=== PATIENT | male | born 1945 | race Caucasian/White ===

== ENCOUNTER 2018-02-10 08:55 | Emergency (ER) | payer MEDICARE, BC, SELFPAY ==
[2018-02-10 09:00] VITALS: BP 180/73; PULSE 76; RESP 18; TEMP 36.7; O2SAT 16
--- NOTE | 2018-02-10 09:25 | DI.REPORT_ITS ---
SYMPTOM/DIAGNOSIS: PAIN FOR 1 WEEK AFTER CATCHING IT WRONG, TOO PAINFUL TO MOVE MUCH LEFT SHOULDER: No fracture or dislocation is seen. There is spurring at the A-C joint and glenoid. No tendon or joint space calcifications are seen. 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 No acute abnormality is seen. There has been no significant change when compared with 2009.
[2018-02-10] MEDS: Ketorolac 30 MG/ML VIAL 15 MG IM (09:30)
--- NOTE | 2018-02-10 10:11 | ED.GENADUL ---
Disposition Clinical Impression: Left shoulder pain Disposition: HOME Condition: Good Instructions: Shoulder Pain (ED), Adhesive Capsulitis (ED) Additional Instructions: Please use the sling as directed. Please move your arm regularly multiple times throughout the day to prevent any adhesive capsulitis. Please follow-up with the orthopedic surgeon as soon as possible for reassessment. Please take [id number] Motrin for your pain, and ice or warm your joint regularly. If you notice any worsening of your symptoms, or any new symptoms such as vomiting, diarrhea, fever, chills, shortness of breath, chest pain, numbness, weakness, or fainting , please return immediately to the emergency department for reevaluation. Please follow up with your primary care provider as soon as possible for reassessment and reevaluation. As always, it was a pleasure participating in your medical care today. Referrals: Reggie Beasley MD [ [facility] ST[facility]FF PHYSICIAN] - Medical Decision Making - Medical Decision Making This is a pleasant 73-year-old male who presents for left shoulder pain after using his arm to catch himself when his knee gave out. He currently has no knee pain or symptoms in his lower extremities whatsoever. He does have mild to moderate pain in his left shoulder. Limitation with internal and external rotation as well as flexion extension secondary to pain. No crepitus, no signs of dislocation. X-ray does reveal evidence of calcifications, and joint arthritis. With normal strength is slightly limited movement I am concerned for a ligamentous or rotator cuff injury without fracture. Patient will be given a sling, with close orthopedic follow-up with whom he has seen in the past. I had a long discussion with him regarding the importance of continued movement of the shoulder to avoid frozen shoulder syndrome. We discussed red flags first return the patient understands. I have extensively reviewed the treatment plan and discharge instructions with the patient. I have addressed all patient concerns at this time. The patient was made aware of what symptoms to monitor for that would warrant a return to the emergency department. Discussed the plan with the patient, they demonstrate verbal understanding and agreement with our assessment and plan at this time. 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 Patient states that occasionally his left knee will go out due to an old injury in this occurred yesterday, when his knee went out he caught all of his weight using his left hand. This caused some mild immediate pain in his left shoulder. Since then he has had pain with movement of the shoulder. There is no radiation of the pain to his chest, neck, there is no exertional component of his pain. It is all musculoskeletal with movement of the shoulder. He denied hearing any popping or crepitus. Patient denies any previous injuries or trauma with this shoulder. Patient is not on any blood thinners. He has no other complaints at this time. - Related Data Multivitamin [Multivitamins] 1 unit PO DAILY 10/13/12 Omeprazole [Prilosec] 20 mg PO DAILY 10/13/12 Tacrolimus Anhydrous [Prograf] 3 tab PO BID 10/13/12 Vitamin D 1,000 units PO DAILY 10/13/12 Amlodipine Besylate 5 mg PO DAILY 06/21/15 Aspirin [Aspir 81] 81 mg PO DAILY 06/21/15 Cholecalciferol (Vitamin D3) [Vitamin D3] 2,000 units PO BID 06/21/15 Docusate Sodium [Stool Softener] 100 mg PO BID 06/21/15 Lisinopril 10 mg PO DAILY 06/21/15 Psyllium Seed (with Sugar) [Metamucil Fiber Wafer] 2 units PO DAILY 06/21/15 OxyCODONE [Roxicodone] 20 mg PO DAILY PRN 08/21/17 Allergies Allergy/AdvReac Type Severity Reaction Status Date / Time metronidazole [From Flagyl] AdvReac Unverified 08/21/17 10:54 Review of Systems Other: 10 point review of systems was performed, pertinent positives and negatives are noted in the history of present illness. Past Medical History - Past Medical History Medical history: AFIB (paroxysmal, has had on 2 occasions, last in 2011) Nephrolithiasis Surgical history: appendectomy, other (Liver transplant August 2011) Family history: no significant family history - Social History Alcohol use: none Drug use: none General Exam - Other Other exam information: 1.Const: Well-nourished, Well-developed, appearing stated age 2.Eyes: PERRL, no conjunctival injection, and symmetrical lids. 3.ENT: Atraumatic external nose and ears. Moist MM. Neck: Symmetric, trachea midline, No thyromegaly. 4.CVS: +S1/S2, No murmurs or gallops. Peripheral pulses 2+ and equal in all extremities. Brisk capillary refill in all extremities. 5.RESP: Unlabored respiratory effort. Clear to auscultation bilaterally. No wheezes rales or rhonchi 6.GI: Soft, Nontender/Nondistended, No hepatosplenomegaly. No guarding or rebound. 7.MSK: Normocephalic/Atraumatic, Extremities w/o deformity. Mild tenderness to palpation on the anterior shoulder. No deformity or evidence of dislocation. Pain with all degrees of movement, albeit mild to moderate. No severe pain. Patient is able to flex extend internally and externally rotate his left shoulder however internal and external rotation is limited to roughly 20? in each direction, flexion and extension is limited to roughly 50?. Sensation is intact distally to the left shoulder. Radial pulses, capillary refill are equal and normal bilaterally. Good flexion and extension at the elbow, and wrist with no pain or deformity. 8.Skin: Warm, Dry. No rashes or lesions. 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 Sensation grossly intact, no focal neurologic deficits. 10.Psych: (AAO) x3. Appropriate mood and affect Course Vital Signs - 24 hr 02/10/18 09:00 Temperature 36.7 C Pulse 76 Respiratory 18 Rate Blood Pressure 180/73 Pulse Oximetry 16 L
--- NOTE | 2018-02-10 10:17 | ED.GENADUL_ITS ---
Disposition Clinical Impression: Left shoulder pain Disposition: HOME Condition: Good Instructions: Shoulder Pain (ED), Adhesive Capsulitis (ED) Additional Instructions: Please use the sling as directed. Please move your arm regularly multiple times throughout the day to prevent any adhesive capsulitis. Please follow-up with the orthopedic surgeon as soon as possible for reassessment. Please take [id number] Motrin for your pain, and ice or warm your joint regularly. If you notice any worsening of your symptoms, or any new symptoms such as vomiting, diarrhea, fever, chills, shortness of breath, chest pain, numbness, weakness, or fainting , please return immediately to the emergency department for reevaluation. Please follow up with your primary care provider as soon as possible for reassessment and reevaluation. As always, it was a pleasure participating in your medical care today. Referrals: Reggie Beasley MD [ [facility] STAFF PHYSICIAN] - Medical Decision Making - Medical Decision Making This is a pleasant 73-year-old male who presents for left shoulder pain after using his arm to catch himself when his knee gave out. He currently has no knee pain or symptoms in his lower extremities whatsoever. He does have mild to moderate pain in his left shoulder. Limitation with internal and external rotation as well as flexion extension secondary to pain. No crepitus, no signs of dislocation. X-ray does reveal evidence of calcifications, and joint arthritis. With normal strength is slightly limited movement I am concerned for a ligamentous or rotator cuff injury without fracture. Patient will be given a sling, with close orthopedic follow-up with whom he has seen in the past. I had a long discussion with him regarding the importance of continued movement of the shoulder to avoid frozen shoulder syndrome. We discussed red flags first return the patient understands. I have extensively reviewed the treatment plan and discharge instructions with the patient. I have addressed all patient concerns at this time. The patient was made aware of what symptoms to monitor for that would warrant a return to the emergency department. Discussed the plan with the patient, they demonstrate verbal understanding and agreement with our assessment and plan at this time. 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 Patient states that occasionally his left knee will go out due to an old injury in this occurred yesterday, when his knee went out he caught all of his weight using his left hand. This caused some mild immediate pain in his left shoulder. Since then he has had pain with movement of the shoulder. There is no radiation of the pain to his chest, neck, there is no exertional component of his pain. It is all musculoskeletal with movement of the shoulder. He denied hearing any popping or crepitus. Patient denies any previous injuries or trauma with this shoulder. Patient is not on any blood thinners. He has no other complaints at this time. - Related Data Multivitamin [Multivitamins] 1 unit PO DAILY 10/13/12 Omeprazole [Prilosec] 20 mg PO DAILY 10/13/12 Tacrolimus Anhydrous [Prograf] 3 tab PO BID 10/13/12 Vitamin D 1,000 units PO DAILY 10/13/12 Amlodipine Besylate 5 mg PO DAILY 06/21/15 Aspirin [Aspir 81] 81 mg PO DAILY 06/21/15 Cholecalciferol (Vitamin D3) [Vitamin D3] 2,000 units PO BID 06/21/15 Docusate Sodium [Stool Softener] 100 mg PO BID 06/21/15 Lisinopril 10 mg PO DAILY 06/21/15 Psyllium Seed (with Sugar) [Metamucil Fiber Wafer] 2 units PO DAILY 06/21/15 OxyCODONE [Roxicodone] 20 mg PO DAILY PRN 08/21/17 Allergies Allergy/AdvReac Type Severity Reaction Status Date / Time metronidazole [From Flagyl] AdvReac Unverified 08/21/17 10:54 Review of Systems Other: 10 point review of systems was performed, pertinent positives and negatives are noted in the history of present illness. Past Medical History - Past Medical History Medical history: AFIB (paroxysmal, has had on 2 occasions, last in 2011) Nephrolithiasis Surgical history: appendectomy, other (Liver transplant August 2011) Family history: no significant family history - Social History Alcohol use: none Drug use: none General Exam - Other Other exam information: 1.Const: Well-nourished, Well-developed, appearing stated age 2.Eyes: PERRL, no conjunctival injection, and symmetrical lids. 3.ENT: Atraumatic external nose and ears. Moist MM. Neck: Symmetric, trachea midline, No thyromegaly. 4.CVS: +S1/S2, No murmurs or gallops. Peripheral pulses 2+ and equal in all extremities. Brisk capillary refill in all extremities. 5.RESP: Unlabored respiratory effort. Clear to auscultation bilaterally. No wheezes rales or rhonchi 6.GI: Soft, Nontender/Nondistended, No hepatosplenomegaly. No guarding or rebound. 7.MSK: Normocephalic/Atraumatic, Extremities w/o deformity. Mild tenderness to palpation on the anterior shoulder. No deformity or evidence of dislocation. Pain with all degrees of movement, albeit mild to moderate. No severe pain. Patient is able to flex extend internally and externally rotate his left shoulder however internal and external rotation is limited to roughly 20 in each direction, flexion and extension is limited to roughly 50 . Sensation is intact distally to the left shoulder. Radial pulses, capillary refill are equal and normal bilaterally. Good flexion and extension at the elbow, and wrist with no pain or deformity. 8.Skin: Warm, Dry. No rashes or lesions. 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 Sensation grossly intact, no focal neurologic deficits. 10.Psych: (AAO) x3. Appropriate mood and affect Course Vital Signs - 24 hr 02/10/18 09:00 Temperature 36.7 C Pulse 76 Respiratory 18 Rate Blood Pressure 180/73 Pulse Oximetry 16 L
[2018-02-10] MEDS: Lidocaine 5% Patch 1 PATCH TP (10:30)
== END 2018-02-10 10:37 | disposition home or self-care (01) ==
PROVIDERS: Emergency Provider Student in an Organized Health Care Education/Training Program; PCP Internal Medicine
DX: M25.512 Pain in left shoulder (principal); X50.9XXA Other and unspecified overexertion or strenuous movements or postures, initial encounter
CPT/HCPCS: 73030; 96372; 99284 ×2; J1885

== ENCOUNTER → 2018-02-13 09:33 | Outpatient (CLI) | payer MEDICARE, BC, SELFPAY | PROVIDERS: PCP Internal Medicine; Visit Provider Orthopaedic Surgery | DX: M75.82 Other shoulder lesions, left shoulder (principal); M25.512 Pain in left shoulder | CPT/HCPCS: 20610; 99213; J1040 ==

== ENCOUNTER → 2018-03-03 09:58 | Outpatient (BNVA) | payer BC, MEDICARE, SELFPAY | PROVIDERS: PCP Internal Medicine; Visit Provider Orthopaedic Surgery | DX: M75.82 Other shoulder lesions, left shoulder (principal) | CPT/HCPCS: 99213 ==

== ENCOUNTER → 2018-03-20 09:15 | Outpatient (BNVA) | payer BC, MEDICARE, SELFPAY | PROVIDERS: PCP Internal Medicine; Referring Provider Internal Medicine; Visit Provider Orthopaedic Surgery | DX: M75.82 Other shoulder lesions, left shoulder (principal) | CPT/HCPCS: 99211; 99213 ==

== ENCOUNTER 2018-07-11 10:05 | Outpatient (CLI) | payer BC, MEDICARE, SELFPAY | END 2018-07-11 10:25 | PROVIDERS: PCP Internal Medicine; Visit Provider Orthopaedic Surgery | DX: M25.512 Pain in left shoulder (principal); M19.012 Primary osteoarthritis, left shoulder; M75.42 Impingement syndrome of left shoulder; S46.012A Strain of muscle(s) and tendon(s) of the rotator cuff of left shoulder, initial encounter; Z01.818 Encounter for other preprocedural examination ==

== ENCOUNTER 2018-07-16 05:57 | Day surgery (SDC) | payer BC, MEDICARE, SELFPAY ==
[2018-07-16] VITALS (9 sets, daily range): BP systolic 116–163; BP diastolic 47–68; PULSE 55–61; RESP 18–23; TEMP 35.8–36.6; O2SAT 93–97
[2018-07-16] MEDS: Lactated Ringers 1,000 ML 80 ML IV (06:31)
[2018-07-16] MEDS: Bupivacaine 0.5% Pres-Free 30 ML VIAL ×2 (07:18→09:22)
[2018-07-16] MEDS: Bupivacaine LIPOSOME/PF 133 MG/10 ML VIAL IJ (07:18)
--- NOTE | 2018-07-16 08:20 | BONE_PTH ---
PATIENT: Rajiv Marcum LOC: [facility] U#:[id number] AGE/SX: 73/M ROOM: RE07/16/[address]: Reggie Beasley MD : 1945 BED: DIS: 07/16/2018 SPEC #: [id number] RECD: 07/16/18 12:40 STATUS: [facility] REQ #: [id number] MAGALY: 07/16/18 08:[address]: Reggie Beasley DEPT: Surgical Specimen RECD BY: Michelle Sarah ENTERED: 07/16/18 12:41 SP TYPE: Bone OTHR DR: Monie Arce Tissues: 1 - BONE BX/CURRETTE NOT PATH FRACTURE Procedures: GROSS AND MICRO LEVEL 3 DECALCIFICATION Comments: [id number]
--- NOTE | 2018-07-16 09:48 | W.PM.DSUDISC ---
Discharge Plan Disposition Patient Disposition: HOME Condition: Improving Discharge Details Reason For Visit: Left rotator cuff repair Attending Provider: Reggie Beasley Primary Care Provider: Monie Arce Home Meds and New Rx's Prescriptions: Continued tacrolimus [Prograf] 1 MG capsule 3 tab PO BID RF: 0 multivitamin 1 EACH capsule 1 unit PO DAILY RF: 0 omeprazole [Prilosec] 20 MG capsule,delayed release(DR/EC) 20 mg PO DAILY RF: 0 amlodipine 5 MG tablet 5 mg PO DAILY RF: 0 aspirin [Aspir-81] 81 MG tablet,delayed release (DR/EC) 81 mg PO DAILY RF: 0 lisinopril 10 MG tablet 10 mg PO DAILY RF: 0 docusate sodium [Stool Softener] 100 MG capsule 100 mg PO BID RF: 0 psyllium 1 EACH wafer 2 units PO DAILY RF: 0 cholecalciferol (vitamin D3) [Vitamin D3] 2,000 UNIT capsule 2,000 units PO BID RF: 0 oxycodone 20 MG tablet 20 mg PO DAILY PRNRF: 0 Discharge Instructions Additional Instructions: Keep your left arm in the sling and bolster at all times to take tension off of the rotator cuff repair. Use ice to the shoulder 20 minutes every hour as needed for pain and swelling. You may loosen the sling portion of the abduction bolster /sling combination and straighten out your elbow if it feels too cramped. Because of the interscalene nerve block you will have some numbness and weakness of your hand and fingers that can last a few days. On saturday07/18/18, you may remove all of your bandages and the sling and bolster and get your incision wet in the shower with soap and water. Gently pat the stitches dry and cover them with gauze. Re-apply your sling/bolster. Take your regular medications as before. Take tylenol, advil or aleve for milder pain. Take oxycodone for more serious pain. [facility] regulations limit the amount of oxycodone that can be prescribed. Follow-up with Dr. Beasley in 10-12 days. Equipment/Supplies: Bolster Pillow Remove Dressings/Wound Care:: 48 hours Shower/Bathe:: 48 hours Diet:: As Tolerated Discharge Orders Discharge Orders: Discharge Order (Routine); Ordered 07/16/18 Ordered By: Reggie Beasley
--- NOTE | 2018-07-16 10:38 | ROE_ITS ---
REPORT OF OPERATIVE PROCEDURE DATE OF SURGERY July 16, 2018 PREOPERATIVE DIAGNOSES Left rotator cuff tear with AC joint arthritis and chronic impingement. POSTOPERATIVE DIAGNOSES Left rotator cuff tear with AC joint arthritis and chronic impingement. PROCEDURES 1. Left rotator cuff repair. 2. Excision of left distal clavicle with Neer acromioplasty. SURGEON Reggie Beasley M.D. [employer] COMPLIANCE SPECIALIST Iris Hernandez PA-C ANESTHESIA General via endotracheal tube by Sameer Skinner CRNA, following interscalene block with Exparel. PREP ChloraPrep. INDICATIONS This patient is a 73-year-old male who has had chronic left shoulder pain [facility] he [facility]. He injured his back and his left shoulder. His shoulder failed to respond to conservative treatment including corticosteroid injections and phy sical therapy. He had some improvement with these activities, but persistent pain. He underwent an op en MRI, which showed a supraspinatus tendon tear and AC joint arthritis. I recommended surgery mindaaus e he failed to respond to conservative treatment and was in chronic pain from his shoulder and his ba ck. The risks and benefits were discussed, and he understood and wished to proceed. I reviewed the isael olivera's MRI with him in detail. OPERATIVE PROCEDURE The patient was greeted in the Day Surgery holding area. I marked his left shoulder. I reviewed the p lanned procedure and the use of an interscalene block, understanding that he would have some numbness and tingling of his left hand, which can last several days. This was done uneventfully in the PACU a nd then he was taken to the Operating Suite, where he was given 2 grams of Ancef as a prophylactic In travenous antibiotic. Because of his liver transplantation, his anesthetic medications were adjusted appropriately by the [facility]. The patient was placed in a modified beach chair position after uneventfu l intubation. The entire left upper extremity was prepped from the tips of the fingers to the neck with ChloraPrep. Sterile drapes were applied. A standard approach for rotator cuff repair as described by Torin was performed, specifically; the incision was made in Desirae's lines from the lateral margin of the panchito coid tip to the anterolateral acromion. I incised the skin through the abundant fat to the superficial vesting fascia of the deltoid of the d eltoid. The deltoid on approach was utilized cutting parallel to the tendinous junction of the anteri or one third of the deltoid and the posterolateral two thirds. This was continued on to the superior surface of the acromion into the AC joint, where the arthritic spur could be easily palpated. After e xposure of the ac joint, using a combination of sharp and blunt dissection, a micro oscillating saw w as used to resect 1.5-cm of the distal clavicle. This was done in a beveled fashion. The deep portion of the acromion was carefully smoothed with a file and a small rongeur. The distal clavicle resected bone specimen was sent to the lab for pathological confirmation of the osteoarthritis, which was not ed at the end of the clavicular head. I then approached the subacromial space. There was a longitudinal split parallel to the order of the anterior supraspinatus and the biceps tendon. There were no areas where the rotator cuff was pulled o ff of the bone. I carefully debrided the tear and performed a limited acromioplasty recessing the cor acoacromial ligament. The anterior inferior acromion was resected with a micro-oscillating saw and sm oothed with a flat file. Because there was no tearing of the tendon off of the bone, but rather it wa s parallel to its fibers, I felt that a sgyuap-jl-mrzmod nlee-fm-tdja repair could be accomplished wi th FiberWire suture. This was done after debridement of the frayed ends and using #2 FiberWire. A wa tertight seal closure was created. I then checked the shoulder for range of motion and impingement, a nd it was full and there was no evidence of any impingement. The deltoid was then repaired with sutur es of #2 Ethibond through holes in the acromion, after first roughening up the superior surface of th e acromion to allow for a dense fibroplastic healing response. The fascia of the AC joint was also cl osed with #2 Ethibond. Supplemental sutures of #1- Vicryl were placed in the muscle fibers of the del toid itself, an excellent repair of the deltoid was achieved. The subcutaneous tissues were closed wi th #2-0 Vicryl. The skin was closed with #4-0 Ethilon in a simple fashion. Marcaine was placed from a calculated dose in concert with use of Exparel for the interscalene block into the joint using 10 cc and 5 cc in subcutaneous tissues. The wound was dressed with Xeroform gauze, 4 x 4's and ABD pad, an d Medipore tape. The patient was placed in an abduction bolster and sling, and taken to the recovery room in satisfactory condition, tolerating the procedure well.
== END 2018-07-16 12:30 | disposition home or self-care (01) ==
PROVIDERS: PCP Internal Medicine; Visit Provider Orthopaedic Surgery
PROC: (CPT 23410; principal; 2018-07-16 07:30)
PROC: (CPT 23120; 2018-07-16 07:30)
DX: S46.011A Strain of muscle(s) and tendon(s) of the rotator cuff of right shoulder, initial encounter (principal); W19.XXXA Unspecified fall, initial encounter; Y92.219 Unspecified school as the place of occurrence of the external cause; M19.011 Primary osteoarthritis, right shoulder; I10 Essential (primary) hypertension
CPT/HCPCS: 23410; 23120; 23415; 76942; 88304; 88311; J0690; J2250; J2370; J2405; L3670

== ENCOUNTER 2019-10-07 12:17 | Emergency (ER) | payer MEDICARE, BC, SELFPAY ==
--- NOTE | 2019-10-07 12:20 | ED.GENADUL_ITS ---
Discharge Plan Disposition Patient Disposition: HOME Condition: Good Discharge Details Chief Complaint: GenMedical Clinical Impression: Limb swelling, Toe ulcer, Cellulitis Primary Care Provider: Monie Arce ED Provider: Nick Rosas Home Meds and New Rx's Prescriptions: New cephalexin [Keflex] 500 mg capsule 500 mg PO QID 10 Days Qty: 40 RF: 0 No Action tacrolimus [Prograf] 1 MG capsule 3 tab PO BID RF: 0 multivitamin 1 EACH capsule 1 unit PO DAILY RF: 0 omeprazole [Prilosec] 20 MG capsule,delayed release(DR/EC) 20 mg PO DAILY RF: 0 amlodipine 5 MG tablet 5 mg PO DAILY RF: 0 aspirin [Aspir-81] 81 MG tablet,delayed release (DR/EC) 81 mg PO DAILY RF: 0 lisinopril 10 MG tablet 10 mg PO DAILY RF: 0 docusate sodium [Stool Softener] 100 MG capsule 100 mg PO BID RF: 0 psyllium 1 EACH wafer 2 units PO DAILY RF: 0 cholecalciferol (vitamin D3) [Vitamin D3] 2,000 UNIT capsule 2,000 units PO BID RF: 0 oxycodone 20 MG tablet 20 mg PO DAILY PRNRF: 0 Discharge Instructions Instructions: Chronic Wound Care (ED) Additional Instructions: At this time your ultrasound shows no evidence of DVT, your blood work is relatively unremarkable but is slightly concerning for a very mild infection in your toe. We will start you on an antibiotic Keflex, please take this as directed. You can continue the Epson salt soaks if you like. I would recommend that your toe be out to dry in the meantime though. Please keep the open toed shoe on to inhibit any additional rubbing on the tip of the foot. 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 If you notice any worsening of your symptoms, or any new symptoms such as vomiting, diarrhea, fever, chills, shortness of breath, chest pain, numbness, weakness, or fainting , please return immediately to the emergency department for reevaluation. Please follow up with your primary care provider as soon as possible for reassessment and reevaluation. As always, it was a pleasure participating in your medical care today. 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 fib in the distant past, not on anticoagulants, hypertension, who presents today for evaluation of left lower extremity swelling and pain. Patient states that symptoms have been present for the last few days, states that he woke up with it, pain is located in his calf, ankle and foot. He denies recalling any trauma. He denies any knee or thigh pain. He does admit to noticing some slight discoloration on his second toe on the left foot, which is certainly different than normal, in addition to this he has notable peripheral neuropathy, and does not feel his feet much in general. He denies any fever, chills, chest pain, shortness of breath. Denies PE risk factors such as recent long car rides, immobilization, recent surgery, prior history of DVT or PE, family history of PE or DVT, morbid obesity, exogenous estrogen and smoking, hemoptysis, history of cancer. She denies any other complaints at this time. No other modifying factors. Physical exam demonstrates mild swelling in the calf and left lower extremity, dorsalis pedis and posterior tibial pulse intact bilaterally. Mild tenderness in the calf on palpation. Patient's second toe on the left is also notably atypical, slightly swollen at the tip, mild excess skin that appears to be coming on secondary to slight chronic moist environment. Minimal redness and warmth, no bleeding discharge or purulent odor. Differential is broad, he may have an osseous abnormality secondary to an undiagnosed sprain, however DVT is certainly more concerning, gout potential but less likely, and mild infection of the toe and osteomyelitis also of concern. With his immunosuppression especially in conjunction with his liver transplant, we will get labs, evaluate further for abnormality, get an ultrasound x-ray to reassess. 2 PM Patient's laboratory work-up is returned, no significant abnormalities, no white count, no bandemia, no left shift all, electrolytes are stable, no transaminitis. The patient's CRP is mildly elevated 2.7, ESR is also slightly elevated at 55, suspect that there is an underlying mild infection secondary to the second toe. With no cellulitis on the foot ankle or calf, and with the majority of the very minimal localized infection being focused on the distal tip of the second toe, there is no evidence of significant spreading disease. On reassessment the patient continues to deny fever, chills, or other complaints. He remains afebrile, with no tachycardia here in the ED. With the patient's clinical risk factors of tacrolimus use, in conjunction with his age and peripheral neuropathy, I do feel that antibiotics would be indicated at this time for starting for mild cellulitis. X-ray per radiology shows no evidence of bony degradation, or significant osteomyelitis, ultrasound is negative for DVT. With no evidence of significant cellulitis, and I see no current clinical indication for inpatient admission, especially with his risk factors for ml coronavirus in the current pandemic scenario. Did discuss discharge home, the patient would like to go home. At this time will start on Keflex, recommend close follow-up with his sludge filtration operator, however his sludge filtration operator is currently not seeing patients on an outpatient basis so we will also add an orthopedic referral. We will give an open toed postop shoe, recommend prompt return for any worsening symptoms. Discussed red flags which to return. I have extensively reviewed the treatment plan and discharge instructions with the patient. I have addressed all patient concerns at this time. The patient was made aware of what symptoms to monitor for that would warrant a return to the emergency department. Discussed the plan with the patient, they demonstrate verbal understanding and agreement with our assessment and plan at this time. FINDINGS: BONES: No acute fracture is present. No bony destructive lesion is seen. There is a small plantar calcaneal spur. Mild degenerative changes are seen in the foot. JOINTS: No dislocation present. There are hammertoe deformities of the 2nd through 5th toes. SOFT TISSUE: There is atherosclerosis. IMPRESSION: No acute abnormality. FINDINGS: BONES: No acute fracture is present. No bony destructive lesion is seen. There is a small osteophyte at the base of the calcaneus. JOINTS:The ankle mortise is normally aligned. SOFT TISSUE: There is soft tissue swelling about the ankle. Atherosclerosis. IMPRESSION: No acute fracture or dislocation. Soft tissue swelling about the left ankle. FINDINGS: The left common femoral, femoral and popliteal veins demonstrate normal compressibility, augmentation, and color Doppler. The posterior tibial veins are patent. The saphenofemoral junction is unremarkable. There is no evidence of superficial thrombophlebitis or a popliteal cyst. IMPRESSION: No DVT. HPI General Date/Time Provider Initiated Documentation: 10/07/19 12:18 . 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 fib in the distant past, not on anticoagulants, hypertension, who presents today for evaluation of left lower extremity swelling and pain. Patient states that symptoms have been present for the last few days, states that he woke up with it, pain is located in his calf, ankle and foot. He denies recalling any trauma. He denies any knee or thigh pain. He does admit to noticing some slight discoloration on his second toe on the left foot, which is certainly different than normal, in addition to this he has notable peripheral neuropathy, and does not feel his feet much in general. He denies any fever, chills, chest pain, shortness of breath. Denies PE risk factors such as recent long car rides, immobilization, recent surgery, prior history of DVT or PE, family history of PE or DVT, morbid obesity, exogenous estrogen and smoking, hemoptysis, history of cancer. She denies any other complaints at this time. No other modifying factors. Related Data Home Medications Medication Instructions Recorded Confirmed multivitamin 1 unit PO DAILY 10/13/12 10/07/19 omeprazole [Prilosec] 20 mg PO DAILY 10/13/12 10/07/19 tacrolimus [Prograf] 3 tab PO BID 10/13/12 10/07/19 amlodipine 5 mg PO DAILY 06/21/15 10/07/19 aspirin [Aspir-81] 81 mg PO DAILY 06/21/15 10/07/19 cholecalciferol (vitamin D3) 2,000 units PO BID 06/21/15 10/07/19 [Vitamin D3] docusate sodium [Stool Softener] 100 mg PO BID 06/21/15 10/07/19 lisinopril 10 mg PO DAILY 06/21/15 10/07/19 psyllium 2 units PO DAILY 06/21/15 10/07/19 oxycodone 20 mg PO DAILY PRN 08/21/17 10/07/19 cephalexin [Keflex] 500 mg PO QID 10 Days #40 cap 10/07/19 Previous Rx's Medication Instructions Recorded cephalexin [Keflex] 500 mg PO QID 10 Days #40 cap 10/07/19 Allergies Allergy/AdvReac Type Severity Reaction Status Date / Time metronidazole [From Flagyl] AdvReac Verified 10/07/19 12:30 Review of Systems All systems reviewed & are unremarkable except as noted in HPI and below PFSH Social History Smoking/Tobacco Use Status: Never Alcohol Intake: never Drug use: Never Substance use type: does not use Do you feel safe at home: Yes Do you feel safe in your relationship?: Yes Exam Narrative Exam Narrative: 1.Const: Well-nourished, Well-developed, appearing stated age 2.Eyes: PERRL, no conjunctival injection, and symmetrical lids. 3.ENT: Atraumatic external nose and ears. Moist MM. Neck: Symmetric, trachea midline, No thyromegaly. 4.CVS: +S1/S2, No murmurs or gallops. Peripheral pulses 2+ and equal in all extremities. Brisk capillary refill in all extremities. 5.RESP: Unlabored respiratory effort. Clear to auscultation bilaterally. No wheezes rales or rhonchi 6.GI: Soft, Nontender/Nondistended, No hepatosplenomegaly. No guarding or rebound. 7.MSK: Left lower extremity demonstrates +1 pitting edema, mild calf tenderness throughout, mild anterior tibial tenderness. Mild tenderness around the ankle, but uncertain if this is secondary to osseous structure or swelling. Mild tenderness over the base of the foot as well. No significant warmth or redness over this area, dorsalis pedis and posterior tibial +1 bilaterally. Also of note the patient's second toe is notably swollen, and atypically formed, notable pallor of the distal skin secondary to mild skin sloughing, which appears to be from a mild chronic moist setting, however the toe is otherwise vascularly intact, and does not show any clinical evidence of an ischemic digit. Mild redness in this area, minimal warmth. No bleeding, no foul purulent odor. 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 Sensation grossly intact, no focal neurologic deficits. 10.Psych: (AAO) x3. Appropriate mood and affect
[2019-10-07 12:25] VITALS: BP 192/82; PULSE 70; RESP 16; TEMP 36.8; O2SAT 98
--- NOTE | 2019-10-07 12:30 | DI.US_ITS ---
EXAM: US LOWER EXTREMITY VENOUS LT CLINICAL HISTORY: swelling left lower ext, r/o clot TECHNIQUE: Left lower extremity venous ultrasound performed using grayscale, color-flow, and spectra l Doppler analysis. COMPARISON: No exams were available for comparison FINDINGS: The left common femoral, femoral and popliteal veins demonstrate normal compressibility, augmentation , and color Doppler. The posterior tibial veins are patent. The saphenofemoral junction is unremarkab le. There is no evidence of superficial thrombophlebitis or a popliteal cyst. IMPRESSION: No DVT. DATA REPOSITORY:
--- NOTE | 2019-10-07 12:30 | DI.RAD_ITS ---
EXAM: XR FOOT LT LIMITED CLINICAL HISTORY: eval 2nd toe for osteomyelitis. TECHNIQUE: 2D digital imaging was performed. COMPARISON: No exams were available for comparison FINDINGS: BONES: No acute fracture is present. No bony destructive lesion is seen. There is a small plantar gogo caneal spur. Mild degenerative changes are seen in the foot. JOINTS: No dislocation present. There are hammertoe deformities of the 2nd through 5th toes. SOFT TISSUE: There is atherosclerosis. IMPRESSION: No acute abnormality. DATA REPOSITORY: RADIATION DOSE DELIVERED:
--- NOTE | 2019-10-07 12:30 | DI.RAD_ITS ---
EXAM: XR ANKLE LT COMPLETE CLINICAL HISTORY: left medial and lateral ankle pain TECHNIQUE: 2D digital imaging was performed. COMPARISON: No exams were available for comparison FINDINGS: BONES: No acute fracture is present. No bony destructive lesion is seen. There is a small osteophyte at the base of the calcaneus. JOINTS:The ankle mortise is normally aligned. SOFT TISSUE: There is soft tissue swelling about the ankle. Atherosclerosis. IMPRESSION: No acute fracture or dislocation. Soft tissue swelling about the left ankle. DATA REPOSITORY: RADIATION DOSE DELIVERED:
[2019-10-07 12:51] LABS: Abs Immature Grans 0.02 k/cumm (0.0-0.09); Absolute Basophil Count 0.03 k/cumm (0.0-0.2); Absolute Eosinophil Count 0.39 k/cumm (0.0-0.7); Absolute Lymphocyte Count 2.05 k/cumm (1.2-3.4); Absolute Monocyte Count 0.56 k/cumm (0.11-0.7); Absolute Neutrophil Count 5.37 k/cumm (1.2-6.7); Basophils % 0.4; Eosinophils % 4.6; HGB 14.3 g/dL (13.5-17.5); Immature Grans % 0.2 %; Lymphocytes % 24.3; Mean Corp. HGB Concentration 32.5 g/dL (32.0-36.0); Mean Corpuscular Hemoglobin 29.9 pg (27.0-33.0); Mean Corpuscular Volume 92.1 fL (80-95); Monocytes % 6.7; Neutrophils % 63.8; Platelet Count 264 x1000/uL (130-400); RBC 4.78 m/cumm (4.50-6.00); RBC Distribution Width 13.3 % (11.8-14.1); White Blood Cell Count 8.42 k/cumm (4.4-10.8)
[2019-10-07 13:06] LABS: ALT 24 U/L (16-63); AST 15 U/L (15-37); Albumin 3.7 g/dL (3.4-5.0); Alkaline Phosphatase 126 U/L (46-116); Anion Gap 9.5 mmol/L (3-11); BUN 18 mg/dL (7-18); Bilirubin, Total 0.6 mg/dL (0.2-1.0); C-Reactive Protein 2.72 mg/dL (0.0-0.3); CO2 27.5 mmol/L (21.0-32.0); CREATININE 1.31 mg/dL (0.70-1.30); Chloride 105 mmol/L (98-107); Glucose 144 mg/dL (74-106); Potassium 4.2 mmol/L (3.5-5.1); Sodium 142 mmol/L (136-145); Total Protein 8.5 g/dL (6.4-8.2)
[2019-10-07 13:08] LABS: Uric Acid 6.5 mg/dL (3.5-7.2)
[2019-10-07 13:45] VITALS: BP 184/80; PULSE 60; RESP 16; TEMP 36.7; O2SAT 98
[2019-10-07 13:49] LABS: ESR 55 mm/hr (1-20)
[2019-10-07 14:11] VITALS: BP 183/90; PULSE 66; RESP 16; TEMP 36.6; O2SAT 98
[2019-10-07] MEDS: Cephalexin 500 MG CAP PO (14:16)
== END 2019-10-07 14:17 | disposition home or self-care (01) ==
PROVIDERS: Emergency Provider Student in an Organized Health Care Education/Training Program; PCP Internal Medicine
DX: R60.0 Localized edema (principal); L97.529 Non-pressure chronic ulcer of other part of left foot with unspecified severity; L03.032 Cellulitis of left toe; Z94.4 Liver transplant status; E11.40 Type 2 diabetes mellitus with diabetic neuropathy, unspecified; Z79.899 Other long term (current) drug therapy; I10 Essential (primary) hypertension
CPT/HCPCS: 80053; 85652; 99284; 73610; 73620; 84550; 85025; 86140; 93971

== ENCOUNTER 2020-09-02 13:31 | Emergency (ER) | payer MEDICARE, BC, SELFPAY ==
--- NOTE | 2020-09-02 13:42 | W.ED.GENAD ---
Discharge Plan Disposition Patient Disposition: HOME Condition: Good Discharge Details Clinical Impression: Ankle sprain, Achilles tendinitis Primary Care Provider: Monie Arce ED Provider: Marianela Valverde Home Meds and New Rx's Prescriptions: Continued tacrolimus [Prograf] 1 MG capsule 3 tab PO BID RF: 0 multivitamin 1 EACH capsule 1 unit PO DAILY RF: 0 omeprazole [Prilosec] 20 MG capsule,delayed release(DR/EC) 20 mg PO DAILY RF: 0 amlodipine 5 MG tablet 5 mg PO DAILY RF: 0 aspirin [Aspir-81] 81 MG tablet,delayed release (DR/EC) 81 mg PO DAILY RF: 0 lisinopril 10 MG tablet 10 mg PO DAILY RF: 0 docusate sodium [Stool Softener] 100 MG capsule 100 mg PO BID RF: 0 psyllium 1 EACH wafer 2 units PO DAILY RF: 0 cholecalciferol (vitamin D3) [Vitamin D3] 2,000 UNIT capsule 2,000 units PO BID RF: 0 oxycodone 20 MG tablet 20 mg PO DAILY PRNRF: 0 Discharge Instructions Instructions: Ankle Sprain (ED), Tendinitis (ED) Additional Instructions: Encourage rest, ice, elevation. She is continue with your pain medication as previously prescribed. Please continue with ankle brace to help with discomfort. As we discussed, heel lifts will also help with the Achilles pain and the purchased [id number]. Make sure you wear both shoes to prevent other downstream issues. Please use crutches as needed to help with any discomfort with walking. Please follow-up with your primary care in the next 1 to 2 weeks for reevaluation. If you develop any new or worsening symptoms please seek care urgently with Referrals: Monie Arce [Primary Care Provider] - Discharge Data Discharge Date/Time-TO BE ENTERED AT DEPARTURE: 09/02/20 15:15 Medical Decision Making Patient is a pleasant 35-year-old male presents today with chief complaint of left ankle pain. She reports that yesterday, while standing on a step, he suffered a rotational injury and fell landing on this foot. He did not actually fall completely to the ground. Did not strike his head, no loss of conscious. Denies other injury at the time of the incident. Since that time. Been having pain of the medial aspect of the ankle as well as posteriorly over the Achilles. He reports the Achilles is particularly tender with palpation. He denies any previous injury or surgery to that area. Has been using his typical pain regimen to help with his discomfort. On exam, patient appears nontoxic. He is hypertensive at 186/72. This appears to be baseline for the patient compared to previous visits last year. Exam of the lower extremity shows 1+ pitting edema, this is the same as the contralateral side patient reports this is unchanged. She is no pain with palpation about the foot. 2+ pulses. No pain over the proximal fifth metatarsal. She has pain posteriorly over the Achilles but this feels to be intact with a normal Blackman test. He does have pain elicited with palpation over the medial malleolus. None elicited over the lateral malleolus. Range of motion slightly limited. Sensation is intact. At this point, I do not see evidence to suggest a full Achilles tendon rupture. We did discuss that he could have suffered a partial rupture although there is no ecchymosis or palpable deformity. Plan for x-ray to evaluate the medial malleolus for any bony abnormality. Discussed this plan with the patient who is in agreement FINDINGS: BONES: No acute fracture is present. No bony destructive lesion is seen. JOINTS:The ankle mortise is normally aligned. SOFT TISSUE: Swelling around both malleoli, greater medially. IMPRESSION: Soft tissue swelling. Patient findings with the patient. Advised ankle sprain with possible Achilles tendinitis or Achilles irritation. I encouraged rest, ice, elevation. Tylenol and ibuprofen as needed for discomfort. Will be fitted with a ankle brace. In regard to the Achilles, I did advise heel lift to help with the discomfort and unload the Achilles tendon. I advised a place using both shoes to prevent antalgic gait. Return precautions were discussed. Encourage follow-up with primary care. Patient does have crutches as he would like to use with ambulation. However, particularly given the weather, I am concerned that this may increase his risk of fall. All his questions and concerns were addressed and he is in agreement with this plan. HPI General Mode of arrival: ambulatory. Date/Time Provider Initiated Documentation: 09/02/20 13:42. Limitations to Documentation: no limitations. Information obtained by: patient and RN notes reviewed. History of Present Illness 75 year old M presents to the emergency department with the chief complaint of left ankle pain, described as severe, with intensity rated at 10. Quality is described as aching, and is localized to the left and lower extremity. Patient reports no radiation. Patient started experiencing this day(s) (1) and it has been constant. Immobilization improves symptom(s), Movement worsens symptoms (pain with extension of ankle) . Patient notes no other symptoms.. Patient did receive the following treatments prior to arrival, other (oxycodone) Related Data Home Medications Medication Instructions Recorded Confirmed multivitamin 1 unit PO DAILY 10/13/12 10/07/19 omeprazole [Prilosec] 20 mg PO DAILY 10/13/12 10/07/19 tacrolimus [Prograf] 3 tab PO BID 10/13/12 10/07/19 amlodipine 5 mg PO DAILY 06/21/15 10/07/19 aspirin [Aspir-81] 81 mg PO DAILY 06/21/15 10/07/19 cholecalciferol (vitamin D3) 2,000 units PO BID 06/21/15 10/07/19 [Vitamin D3] docusate sodium [Stool Softener] 100 mg PO BID 06/21/15 10/07/19 lisinopril 10 mg PO DAILY 06/21/15 10/07/19 psyllium 2 units PO DAILY 06/21/15 10/07/19 oxycodone 20 mg PO DAILY PRN 08/21/17 10/07/19 Allergies Allergy/AdvReac Type Severity Reaction Status Date / Time metronidazole [From Flagyl] AdvReac Verified 10/07/19 12:30 General KEVIN: 3 Review of Systems Constitutional Constitutional: Reports as per HPI, Denies chills, Denies fever(s), Denies headache(s) and Denies weakness ENT Ears, Nose, Mouth, and Throat: Denies headache(s) Cardiovascular Cardiovascular: Reports as per HPI Respiratory Respiratory: Reports as per HPI and Denies cough Musculoskeletal Musculoskeletal: Reports as per HPI and Denies tingling Integumentary/Breasts Skin/Breast: Reports as per HPI, Denies rash and Denies wounds Neurologic Neurologic: Reports as per HPI, Denies headache(s), Denies tingling, Denies paresthesias and Denies weakness [facility] Social History Smoking/Tobacco Use Status: Never Smoking risk assessment performed?: Yes Alcohol Intake: never Drug use: Never Substance use type: does not use Do you feel safe at home: Yes Do you feel safe in your relationship?: Yes Exam Const General: cooperative, healthy appearing, comfortable, no acute distress, well developed and well groomed Nutritional Appearance: well nourished and overweight Orientation: alert and awake Resp Effort & Inspection: normal respiratory effort, able to speak in complete sentences and no respiratory distress Cardio Rate: regular rate Rhythm: regular rhythm Skin General skin exam: no rashes or lesions noted Lesions: no lesions Rashes: no rashes Trauma: no lacerations or abrasions Neuro General: patient alert and patient awake Cognition: normal cognition Speech: speech normal Gait: antalgic Motor: muscle tone normal throughout Sensory Exam: no sensory deficits noted Extrem Ankle/foot/toe images: 1. Area of patient's discomfort. Swelling is appreciated. No ecchymosis, deformity. Achilles is palpated and feels to be intact, normal Blackman test. However, he does have pain with palpation over the Achilles as well as pain with dorsiflexion of the foot. 2+ distal pulses, intact capillary refill, sensation is intact. No pain over the proximal fifth metatarsal or elsewhere palpation about the foot. No pain in the heel. No pain over the proximal fibula. Psych Appearance: grossly normal and well kempt Mental Status: mental status grossly normal Speech and Movement: speech and movement normal
[2020-09-02 13:43] VITALS: BP 186/72; PULSE 58; RESP 16; TEMP 36.7; O2SAT 96
--- NOTE | 2020-09-02 14:23 | DI.RAD_ITS ---
EXAM: XR ANKLE LT COMPLETE CLINICAL HISTORY: rotational injury, pain over medial malleolus TECHNIQUE: 2D digital imaging was performed. COMPARISON: CR XR ANKLE LT COMPLETE from 10/07/2019 FINDINGS: BONES: No acute fracture is present. No bony destructive lesion is seen. JOINTS:The ankle mortise is normally aligned. SOFT TISSUE: Swelling around both malleoli, greater medially. IMPRESSION: Soft tissue swelling. DATA REPOSITORY: RADIATION DOSE DELIVERED:
== END 2020-09-02 15:15 | disposition home or self-care (01) ==
PROVIDERS: Emergency Provider Physician Assistant; PCP Internal Medicine
DX: S93.402A Sprain of unspecified ligament of left ankle, initial encounter (principal); W10.8XXA Fall (on) (from) other stairs and steps, initial encounter; M76.62 Achilles tendinitis, left leg
CPT/HCPCS: 29515; 99284; 73610; 99283

== ENCOUNTER 2022-10-20 16:31 | Emergency (ER) | payer MEDICARE, SELFPAY ==
[2022-10-20] VITALS (28 sets, daily range): BP systolic 117–156; BP diastolic 65–92; PULSE 60–80; RESP 8–23; TEMP 36.6; O2SAT 83–100
--- NOTE | 2022-10-20 16:30 | RT.EKG_ITS ---
APPROVED REPORT Exam: Resting ECG Reason for Exam: sob Patient Location: E HR:87 bpm ECG Measurements Heart Rate 87 AXIS TN 58 P 0 QRSd 196 QRS 122 QT 389 T 10 QTc 469 Conclusion Ventricular-paced rhythm
[2022-10-20 17:02] LABS: Abs Immature Grans 0.01 10^3/uL (0.0-0.06); Absolute Basophil Count 0.03 10^3/uL (0.0-0.2); Absolute Eosinophil Count 0.14 10^3/uL (0.0-0.7); Absolute Lymphocyte Count 1.45 10^3/uL (1.2-3.4); Absolute Monocyte Count 0.46 10^3/uL (0.1-0.8); Basophils % 0.5; Eosinophils % 2.2; HCT 44.9 % (40.0-50.0); HGB 13.9 g/dL (13.5-17.5); Immature Grans % 0.2; Lymphocytes % 22.3; MCH 28.5 pg (27.0-33.0); MCV 92 fL (80-95); MPV 9.1 fL (8.0-11.0); Monocytes % 7.1; Neutrophils % 67.7; Platelet Count 165 10^3/uL (130-400); RBC 4.87 10^6/uL (4.36-5.78); RDW-SD 47.2 fL; WBC 6.49 10^3/uL (4.4-10.8)
--- NOTE | 2022-10-20 17:13 | ED.GENADUL_ITS ---
Discharge Plan Disposition Patient Disposition: Home Condition: Stable Discharge Details Clinical Impression: Dyspnea Primary Care Provider: Monie Arce ED Provider: Tonia Pretty Home Meds and New Rx's Prescriptions: Continued tacrolimus [Prograf] 1 MG capsule 3 tab PO BID Patient Comments: 2.5 mg am and 2.5 mg pm multivitamin 1 EACH capsule 1 unit PO DAILY omeprazole [Prilosec] 20 MG capsule,delayed release(DR/EC) 20 mg PO DAILY amlodipine 5 MG tablet 10 mg PO DAILY aspirin [Aspir-81] 81 MG tablet,delayed release (DR/EC) 81 mg PO DAILY lisinopril 10 MG tablet 10 mg PO DAILY docusate sodium [Stool Softener] 100 MG capsule 100 mg PO BID psyllium 1 EACH wafer 2 units PO DAILY cholecalciferol (vitamin D3) [Vitamin D3] 2,000 UNIT capsule 2,000 units PO BID oxycodone 20 MG tablet 20 mg PO DAILY PRN apixaban 5 mg Tablet 5 mg PO BID furosemide 40 mg Tablet 40 mg PO DAILY tamsulosin 0.4 mg Capsule 0.4 mg PO DAILY tadalafil [Cialis] 5 mg Tablet 5 mg PO DAILY PRN Rx Instructions: administer approximately 30min before sexual activity; do not use more than 1 dose per 24hrs Discharge Instructions Instructions: Dyspnea (ED) Additional Instructions: Discussed with your PCP about possibly increasing your Lasix. You were placed on a care management list to get you in with textile examiner Dr. Griffith and expedite a follow-up with cardiology. Follow up with primary care provider in 3-5 days. Return to ED sooner if any worsening or concerns. Return to the ER for any worsening shortness of breath, fever chills vomiting chest pain or any concerns. Referrals: Monie Arce [Primary Care Provider] - 3 days Medical Decision Making 77-year-old male with a past medical history of pacemaker, liver transplant, presents to the ER with chief complaint of shortness of breath for last for 5 days. Patient has been followed by [place] [facility] [place] was scheduled to have a pacemaker changed however he had a foot infection and so his surgery was postponed. He reports that he has no chest pain no nausea vomiting diarrhea no problems urinating no fever chills no cough. He was recently put on Lasix in July and taken off his metoprolol recently within the last week. Work-up ordered including serial troponins, proBNP PT PTT and chest x-ray. CBC shows no leukocytosis, CMP shows elevated BUN/creatinine GFR is 40, troponin initially less than 50 which is within normal limits proBNP is 4778. 20 mg of furosemide IV ordered. Will reevaluate after medication administration. Patient reevaluation: He has received 40 of Lasix and a DuoNeb. He reports no significant change after the DuoNeb. He has not had any urine output since the Lasix. I did discuss with him follow-up in his proBNP results which are elevated. He is requesting a follow-up with pulmonology. He has remained hemodynamically stable throughout his entire stay, O2 sat has remained in the high 90s on room air. I do suspect CHF exacerbation which could be confounded by his pacemaker which is apparently not functioning correctly. Patient was placed on a care management follow-up list to get a sooner appointment with Dr. Hi at [facility] and to get in with pulmonology within the next 2 to 3 weeks if possible. Discussed tricked return instructions to return for any worsening shortness of breath, chest pain, dizziness feeling faint or any concerns. Repeat troponin being drawn now. Repeat troponin within normal limits. Patient discharged in hemodynamically stable condition. This text was generated using [employer] dictation system, please disregard any oddities of phrase or misspellings. Medical Records Medical records reviewed: Yes I reviewed the patient's medical records. Imaging Data Radiologic Study: Imaging: X-Ray Radiologist's impression: COMPARISON: MRI LEFT SHOULDER 06/16/2018 8:13 AM FINDINGS: Lungs: Unremarkable. No consolidation. Pleural spaces: Unremarkable. No pleural effusion. No pneumothorax. Heart/Mediastinum: Unremarkable. No cardiomegaly. Bones/joints: Moderate degenerative changes of the spine and shoulders are noted. IMPRESSION: No acute disease Thank you for allowing us to participate in the care of your patient. Dictated and Authenticated by: Kike Hussein MD Lab Data Lab results reviewed: Yes I reviewed the patient's lab results. Labs: Laboratory Tests Range/Units 10/20/22 10/20/22 10/20/22 16:56 16:56 16:56 WBC (4.4-10.8) 10^3/uL 6.49 RBC (4.36-5.78) 10^6/uL 4.87 Hgb (13.5-17.5) g/dL 13.9 Hct (40.0-50.0) % 44.9 MCV (80-95) fL 92 MCH (27.0-33.0) pg 28.5 MCHC (32.0-36.0) % 31.0 L RDW (11.8-14.1) % 14.0 Plt Count (130-400) 10^3/uL 165 MPV (8.0-11.0) fL 9.1 Immature Gran % 0.2 Neutrophils % 67.7 Lymphocytes % 22.3 Monocytes % 7.1 Eosinophils % 2.2 Basophils % 0.5 Nucleated RBC % (0.0-0.3) % 0.0 Absolute Neutrophils (1.2-6.7) 10^3/uL 4.40 Absolute Lymphocytes (1.2-3.4) 10^3/uL 1.45 Absolute Monocytes (0.1-0.8) 10^3/uL 0.46 Absolute Eosinophils (0.0-0.7) 10^3/uL 0.14 Absolute Basophils (0.0-0.2) 10^3/uL 0.03 PT (9.3-11.0) sec 11.0 INR (0.9-1.1) 1.1 APTT (21.5-31.9) sec 31.3 Sodium (136-145) mmol/L 141 Potassium (3.5-5.1) mmol/L 5.1 Chloride (98-107) mmol/L 106 Carbon Dioxide (21.0-32.0) mmol/L 26.3 Anion Gap (3-11) mmol/L 8.7 BUN (7-18) mg/dL 20 H Creatinine (0.70-1.30) mg/dL 1.7 H Est GFR (CKD-EPI 2020) (mL/min/1.73m2) 40.50 Glucose (74-106) mg/dL 150 H Calcium (8.5-10.1) mg/dL 8.9 Magnesium (1.8-2.4) mg/dL 1.9 Total Bilirubin (0.2-1.0) mg/dL 0.7 AST (15-37) U/L 20 ALT (16-63) U/L 25 Alkaline Phosphatase (46-116) U/L 118 H Troponin I (<or=60) ng/L < 50 NT-Pro-B Natriuret Pep (<300) pg/mL 4778 H Total Protein (6.4-8.2) g/dL 8.0 Albumin (3.4-5.0) g/dL 3.8 HPI General Mode of arrival: ambulatory . Date/Time Provider Initiated Documentation: 10/20/22 16:32 . Limitations to Documentation: no limitations . Information obtained by: patient, RN notes reviewed and old records reviewed . HPI Narrative: 77-year-old male with a past medical history of pacemaker, liver transplant, presents to the ER with chief complaint of shortness of breath for last for 5 days. Patient has been followed by cardiology [place] [facility] was scheduled to have a pacemaker changed however he had a foot infection and so his surgery was postponed. He reports that he has no chest pain no nausea vomiting diarrhea no problems urinating no fever chills no cough. He was recently put on Lasix in July and taken off his metoprolol recently within the last week. Related Data Home Medications Medication Instructions Recorded Confirmed multivitamin 1 unit PO DAILY 10/13/12 10/07/19 omeprazole 20 mg capsule,delayed 20 mg PO DAILY 10/13/12 10/07/19 release (Prilosec) tacrolimus 1 mg capsule, 3 tab PO BID 10/13/12 10/07/19 immediate-release (Prograf) amlodipine 5 mg tablet 10 mg PO DAILY 06/21/15 10/07/19 aspirin 81 mg tablet,delayed 81 mg PO DAILY 06/21/15 10/07/19 release (Aspir-) cholecalciferol (vitamin D3) 50 2,000 units PO BID 06/21/15 10/20/22 mcg (2,000 unit) capsule (Vitamin D3) docusate sodium 100 mg capsule 100 mg PO BID 06/21/15 10/20/22 (Stool Softener) lisinopril 10 mg tablet 10 mg PO DAILY 06/21/15 10/07/19 psyllium 1.7 g oral wafer 2 units PO DAILY 06/21/15 10/07/19 oxycodone 20 mg tablet 20 mg PO DAILY PRN 08/21/17 10/07/19 apixaban 5 mg tablet 5 mg PO BID 10/20/22 10/20/22 furosemide 40 mg tablet 40 mg PO DAILY 10/20/22 10/20/22 tadalafil 5 mg tablet (Cialis) 5 mg PO DAILY PRN 10/20/22 10/20/22 tamsulosin 0.4 mg capsule 0.4 mg PO DAILY 10/20/22 10/20/22 Allergies Allergy/AdvReac Type Severity Reaction Status Date / Time metronidazole [From Flagyl] AdvReac Verified 10/20/22 17:47 General Stated Complaint: SOB KEVIN: 2 Review of Systems All systems reviewed & are unremarkable except as noted in HPI and below Cardiovascular Cardiovascular: Denies chest pain, Denies leg edema and Reports dyspnea Respiratory Respiratory: Reports dyspnea and Reports wheezing Allergic/Immunologic Allergic/Immunologic: Reports wheezing PFSH All Active Problems (Updated 10/20/22 @ 19:17 by Tonia Pretty NP) Ankle sprain (Acute) Achilles tendinitis (Acute) Dyspnea (Acute) Conductive hearing loss of left ear (Acute) Pre-operative examination (Acute) Left shoulder tendinitis (Acute) 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 Appears stated age. Obese body habitus. Head: Normocephalic, no trauma. Eyes: Pupils PERRL, Red reflex noted, EOM's intact. Eyelids symmetrical without lesions, discharge, or swelling. ENT: Bilateral TM's WNL, External ear normal to inspection, no mastoid TTP, swelling, or erythema, Nasal turbinates WNL, no nasal discharge. Normal dentition, Posterior pharynx WNL, no exudate. Chest: RRR, Normal S1, S2, distal pulses intact. Resp: Mild expiratory wheezes noted on the right, diminished on the left Abdomen: Soft, non-distended, Normoactive bowel sounds all 4 quads. Musculoskeletal: 5/5 strength to all four extremities. Skin: Patient has multiple brown excoriations noted on his back face. Capillary refill less than 2 sec. Neurologic: Cranial nerves II-XII intact. Alert and oriented x 3. Motor: No def icits noted. Sensory: Intact bilaterally all 4 extremities. Reflexes: DTR's intact bilaterally.. Hematologic/Lymphatic: No ecchymosis, no lymphadenopathy. Course Vital Signs Vital signs: Vital Signs Temperature 36.6 C 10/20/22 16:34 Pulse 80 10/20/22 16:34 Respiratory Rate 16 10/20/22 16:34 Blood Pressure 156/92 H 10/20/22 16:34 Pulse Oximetry 98 10/20/22 16:34 Temperature 36.6 C 10/20/22 16:34 Temperature Source Oral 10/20/22 16:34 Pulse 80 10/20/22 16:34 Respiratory Rate 16 10/20/22 16:34 Blood Pressure 156/92 H 10/20/22 16:34 Pulse Oximetry 98 10/20/22 16:34 Oxygen Delivery Method Room Air 10/20/22 16:34 Oxygen Flow Rate 0 10/20/22 16:34 Pain Level 0 10/20/22 16:34 Lab/Test Results Lab/Test Results: Laboratory Tests Range/Units 10/20/22 16:56 WBC (4.4-10.8) 10^3/uL 6.49 RBC (4.36-5.78) 10^6/uL 4.87 Hgb (13.5-17.5) g/dL 13.9 Hct (40.0-50.0) % 44.9 MCV (80-95) fL 92 MCH (27.0-33.0) pg 28.5 MCHC (32.0-36.0) % 31.0 L RDW (11.8-14.1) % 14.0 Plt Count (130-400) 10^3/uL 165 MPV (8.0-11.0) fL 9.1 Immature Gran % 0.2 Neutrophils % 67.7 Lymphocytes % 22.3 Monocytes % 7.1 Eosinophils % 2.2 Basophils % 0.5 Nucleated RBC % (0.0-0.3) % 0.0 Absolute Neutrophils (1.2-6.7) 10^3/uL 4.40 Absolute Lymphocytes (1.2-3.4) 10^3/uL 1.45 Absolute Monocytes (0.1-0.8) 10^3/uL 0.46 Absolute Eosinophils (0.0-0.7) 10^3/uL 0.14 Absolute Basophils (0.0-0.2) 10^3/uL 0.03
[2022-10-20 17:15] LABS: INR 1.1 (0.9-1.1); PTT Activated 31.3 sec (21.5-31.9)
--- NOTE | 2022-10-20 17:15 | DI.RAD_ITS ---
Exam(s) XR CHEST 2V PA LATERAL EXAM: XR CHEST 2V PA LATERAL CLINICAL HISTORY: SOB TECHNIQUE: 2D digital imaging was performed of the chest. Two images were obtained. PA and lateral views were obtained. COMPARISON: CR CHEST 2 VIEWS PA,LAT from 06/21/2015 CR LEFT SHOULDER COMPLETE from 02/10/2018 FINDINGS: MEDIASTINUM: Normal. HEART: Mild cardiomegaly. PULMONARY VASCULATURE: Normal. LUNGS: Clear. PLEURAL SPACE: No pleural effusion or pneumothorax. BONE:Within normal limits for the patient's age. OTHER FINDINGS:Normal. IMPRESSION: No acute pulmonary findings. DATA REPOSITORY: RADIATION DOSE DELIVERED:
[2022-10-20 17:25] LABS: ALT 25 U/L (16-63); AST 20 U/L (15-37); Albumin 3.8 g/dL (3.4-5.0); Alkaline Phosphatase 118 U/L (46-116); Anion Gap 8.7 mmol/L (3-11); BUN 20 mg/dL (7-18); Bilirubin, Total 0.7 mg/dL (0.2-1.0); CO2 26.3 mmol/L (21.0-32.0); CREATININE 1.7 mg/dL (0.70-1.30); Calcium 8.9 mg/dL (8.5-10.1); Chloride 106 mmol/L (98-107); Glucose 150 mg/dL (74-106); Magnesium 1.9 mg/dL (1.8-2.4); NT-proBNP 4778 pg/mL (<300); Potassium 5.1 mmol/L (3.5-5.1); Sodium 141 mmol/L (136-145); Troponin I < 50 ng/L (<or=60)
--- NOTE | 2022-10-20 18:09 | DI.VRAD_ITS ---
PROCEDURE INFORMATION: Exam: XR Chest Exam date and time: 10/20/2022 5:50 PM Age: 77 years old Clinical indication: Other: SOB TECHNIQUE: Imaging protocol: Radiologic exam of the chest. Views: 2 views. COMPARISON: MRI LEFT SHOULDER 06/16/2018 8:13 AM FINDINGS: Lungs: Unremarkable. No consolidation. Pleural spaces: Unremarkable. No pleural effusion. No pneumothorax. Heart/Mediastinum: Unremarkable. No cardiomegaly. Bones/joints: Moderate degenerative changes of the spine and shoulders are noted. IMPRESSION: No acute disease Dictated and Authenticated by: Kike Hussein MD. Ordering:DILIP Randall MD
[2022-10-20] MEDS: Albuterol/Ipratropium 3 ML UPD VIAL UPD (18:38)
[2022-10-20] MEDS: Furosemide 20 MG/2 ML VIAL IVP (18:38)
--- NOTE | 2022-10-20 19:14 | NUR.NOTE ---
Pt placed on the care management referral list [place] [facility] [facility] with Ema Jensen appt is to be made as soon as possible
[2022-10-20 19:41] LABS: Troponin I < 50 ng/L (<or=60)
== END 2022-10-20 20:01 | disposition home or self-care (01) ==
PROVIDERS: Emergency Provider Registered Nurse Emergency; PCP Internal Medicine
DX: R06.00 Dyspnea, unspecified (principal); R79.89 Other specified abnormal findings of blood chemistry; E66.9 Obesity, unspecified
CPT/HCPCS: 36415; 80053; 93005; 94640; 96374; 99284; 71046; 83735; 83880; 84484; 85025; 85610; 85730; 93010; J1941; J7620

== ENCOUNTER 2022-11-30 07:20 | Day surgery (SDC) | payer MEDICARE, SELFPAY ==
--- NOTE | 2022-11-30 06:25 | W.ANESPRE ---
General Info Date of Service Date Performed: 11/30/22 Height: 5 ft 11 in Weight: 114.2 kg Body Mass Index (BMI): 35.1 Surgical Procedure: Operation Date: 11/30/22 09:40 Proposed Procedure Side Surgeon p Cataract Extraction with IOL Implant Right Braydon Degroot MD Meds Allergies and Home Medications Allergies Allergy/AdvReac Type Severity Reaction Status Date / Time fluorouracil Allergy Other (See Unverified 11/30/22 07:57 Comment) NSAIDS (Non-Steroidal Allergy Contraindic Unverified 11/30/22 07:57 Anti-Inflamma ation caffeine AdvReac Intermediate Rapid Unverified 11/30/22 07:57 Heartbeat metronidazole [From Flagyl] AdvReac Verified 11/30/22 07:57 Home Medication Medication Instructions Recorded multivitamin 1 unit PO DAILY 10/13/12 omeprazole 20 mg capsule,delayed 20 mg PO DAILY 10/13/12 release (Prilosec) tacrolimus 1 mg capsule, 3 tab PO BID 10/13/12 immediate-release (Prograf) amlodipine 5 mg tablet 10 mg PO DAILY 06/21/15 cholecalciferol (vitamin D3) 50 2,000 units PO BID 06/21/15 mcg (2,000 unit) capsule (Vitamin D3) docusate sodium 100 mg capsule 100 mg PO BID 06/21/15 (Stool Softener) lisinopril 10 mg tablet 10 mg PO DAILY 06/21/15 psyllium 1.7 g oral wafer 2 units PO DAILY 06/21/15 oxycodone 20 mg tablet 20 mg PO DAILY PRN 08/21/17 apixaban 5 mg tablet 5 mg PO BID 10/20/22 furosemide 40 mg tablet 40 mg PO DAILY 10/20/22 tadalafil 5 mg tablet (Cialis) 5 mg PO DAILY PRN 10/20/22 tamsulosin 0.4 mg capsule 0.4 mg PO DAILY 10/20/22 amoxicillin 500 mg capsule 1,000 mg PO DIRECTED 11/29/22 magnesium oxide 400 mg PO DAILY 11/29/22 multivitamin 1 tab PO DAILY 11/29/22 oxycodone 30 mg tablet,crush 30 mg PO DIRECTED 11/29/22 resistant,extended release 12 hr (OxyContin) oxycodone 5 mg tablet 5 mg PO Q6H PRN 11/29/22 vitamin A 10,000 unit tablet 10,000 unit PO DAILY 11/29/22 potassium chloride 10 mEq 10 meq PO DAILY 11/30/22 tablet,extended release Current Visit Medications: Current Medications Generic Name Dose Route Start Last Admin Trade Name Freq PRN Reason Stop Dose Admin Acetaminophen 1,000 mg 11/30/22 06:00 Acetaminophen 500 Mg Tab PO 12/30/22 05:59 Q4H PRN PRN Balanced Salt Solution 500 ml 11/30/22 06:00 Balanced Salt Soln.-Plus 500 Ml Bag OP 12/30/22 05:59 DIRECTED [facility] Miscellaneous Medication 0 ml 11/30/22 06:00 Prednisolone 1%, Moxifloxacin 0.5%, Nepafenac 0.1% 5ml Btl OD 12/30/22 05:59 DIRECTED [facility] Miscellaneous Medication 0 ml 11/30/22 06:00 Tropicam./Phenyleph. (1/2.5%) 5 Ml Btl OD 12/30/22 05:59 DIRECTED [facility] Tetracaine HCl 0 ml 11/30/22 06:00 Tetracaine 0.5% 4 Ml Btl OD 12/30/22 05:59 DIRECTED [facility] PFSH Active Problems Active Problems: Problem Status Onset Code Sacroiliac joint dysfunction of left side M53.3 Left shoulder tendinitis M75.82 Pre-operative examination Z01.818 Status post rotator cuff surgery Z98.890 Conductive hearing loss of left ear H90.12 Ankle sprain S93.409A Achilles tendinitis M76.60 Nuclear age-related cataract, right eye H25.11 Posterior subcapsular age-related cataract, right eye H25.041 Medical History Medical History A-fib Acquired hammer toe of right foot Actinic keratosis Arthralgia of ankle Cardiac pacemaker in situ Corry dual chamber Erectile dysfunction Hx of malignant melanoma Hx of malignant neoplasm of skin Hx of primary malignant neoplasm of liver Hx of skin cancer, basal cell Hx of squamous cell carcinoma of skin Hypertensive disorder Inflammatory dermatosis Kidney stone Low back pain Lower urinary tract symptoms due to benign prostatic hyperplasia Neuropathy Obesity Onychomycosis of toenail AVE (obstructive sleep apnea) PLMD (periodic limb movement disorder) Seasonal allergic rhinitis Tachycardia-bradycardia Toe infection Surgical History Surgical History History of appendectomy History of liver biopsy History of liver recipient History of tonsillectomy S/P operative procedure on shoulder injection Tobacco Smoking/Tobacco Use Status: Never Alcohol Alcohol Intake: never Substance Use Substance use: Never Substance use type: does not use Vital Signs and Lab Results Lab Results Blood Type / Crossmatch: No Data to Display Complete Blood Count: No Data to Display Complete Metabolic Panel: No Data to Display Liver Function Panel: No Data to Display Coagulation Panel: No Data to Display Cardiac Panel: No Data to Display Arterial Blood Gas: No Data to Display Venous Blood Gas: No Data to Display Pancreas Panel: No Data to Display Thyroid Panel: No Data to Display Infectious Disease: No Data to Display Blood Cultures: No Data to Display Toxicology Panel: No Data to Display Imaging and Studies Imaging and Studies Study information below may be from another EMR and interpreted by another provider. Please see original notes in EMR for more complete details. EKG Summary: 10/14: paced. Echocardiogram Summary: 12/14: LVEF 65%, septal flatting, PASP 69 mmhg, moderate TR, mild . Anesthesia Assessment and Plan Anesthesia History Personal History: No History of Anesthesia Complications Family History: No Family History of Anesthesia Complications Exercise Tolerance Exercise Tolerance: Metabolic Equivalents>4 Cardiac & Pulmonary Exam Cardiac Exam: Normal S1/S2 Heart Sounds Pulmonary Exam: Clear Bilateral Breath Sounds Implantable Cardiac Device Does patient have a Pacemaker or an ICD?: Yes Device Fountain Waitress/Waiter:: Medtronic Micra AV Reason for Placement:: Tachy-Nelson Syndrome Date of Last Device Interrogation:: 10/10/22 Airway Exam Known Difficult Airway: No Mallampati Class: 4 Mouth Opening: Normal (> 3cm) Thyromental Distance: Greater than 3 cm Neck Range of Motion: Full ROM Neck Circumference: Normal Teeth Condition: Normal Dentition ASA Classification ASA Score: ASA 3 Emergency Case?: No NPO Status NPO Status: NPO Clears >2 hours, Solids >8 hours Anesthesia Plan Resuscitation Status: Full Code Anesthesia Technique: MAC Anesthesia Airway Planned: Natural Airway Monitors Used: Standard Monitors Preoperative Comments:: 77 yo male for cataract removal. Sig PMHx: afib (apixaban), HTN, pacer (tachy-nelson - due to be explanted), neuropathy, s/p liver transplant, AVE, Previous Anes: - RTC, glide 3 grade 1.
[2022-11-30 07:50] VITALS: BP 153/80; PULSE 61; RESP 16; TEMP 36.8; O2SAT 96
[2022-11-30 08:03] VITALS: BMI 35.1
[2022-11-30] MEDS: Tropicam./Phenyleph. (1/2.5%) 5 ML BTL OD ×3 (08:28→09:02)
[2022-11-30] MEDS: Balanced Salt Soln.-PLUS 500 ML BAG OP (09:43)
[2022-11-30] MEDS: Lidocaine 1% Pres-Free 5 ML VIAL (09:44)
[2022-11-30] MEDS: Tetracaine 0.5% 4 ML BTL OD (09:44)
[2022-11-30] MEDS: Duovisc Viscoelastic System EACH 1 EACH (09:45)
[2022-11-30] MEDS: Povidone-Iodine Ophth 30 ML BTL (09:46)
[2022-11-30] MEDS: Phenylephrine/Lidocaine (15/10) MG/ML 1 ML VIAL (09:46)
[2022-11-30 09:58] VITALS: BP 160/80; PULSE 60; RESP 16; TEMP 36.6; O2SAT 99
--- NOTE | 2022-11-30 09:58 | W.PM.DSUDISC ---
Date of service: 11/30/22 Time of Service: 09:58 Discharge Plan Disposition Patient Disposition: Home Discharge Details Reason For Visit: CATARACT Attending Provider: Braydon Degroot Primary Care Provider: Monie Arce Home Meds and New Rx's Prescriptions: No Action tacrolimus [Prograf] 1 MG capsule 3 tab PO BID Patient Comments: 2.5 mg am and 2.5 mg pm multivitamin 1 EACH capsule 1 unit PO DAILY omeprazole [Prilosec] 20 MG capsule,delayed release(DR/EC) 20 mg PO DAILY amlodipine 5 MG tablet 5 mg PO DAILY lisinopril 10 MG tablet 10 mg PO DAILY docusate sodium [Stool Softener] 100 MG capsule 100 mg PO BID psyllium 1 EACH wafer 2 units PO DAILY cholecalciferol (vitamin D3) [Vitamin D3] 2,000 UNIT capsule 2,000 units PO BID amoxicillin 500 mg capsule 1,000 mg PO DIRECTED Patient Comments: TAKE FOUR CAPSULES BY MOUTH 1 HOUR PRIOR TO DENTAL PROCEDURE oxycodone 5 mg Tablet 5 mg PO Q6H PRN oxycodone [OxyContin] 30 mg tablet,oral only,ext.rel.12 hr 30 mg PO DIRECTED Patient Comments: TAKE ONE TABLET BY MOUTH EVERY 12 HOURS magnesium oxide 400 mg magnesium Tablet 400 mg PO DAILY multivitamin [TAB A GERONIMO] Tablet 1 tab PO DAILY vitamin A 10,000 unit Tablet 10,000 unit PO DAILY potassium chloride 10 mEq tablet extended release 10 meq PO DAILY Patient Comments: 6/ pt hasnt started oxycodone 20 MG tablet 20 mg PO DAILY PRN apixaban 5 mg Tablet 5 mg PO BID furosemide 40 mg Tablet 40 mg PO DAILY tamsulosin 0.4 mg Capsule 0.4 mg PO DAILY tadalafil [Cialis] 5 mg Tablet 5 mg PO DAILY PRN Rx Instructions: administer approximately 30min before sexual activity; do not use more than 1 dose per 24hrs Discharge Instructions Stand Alone Forms: Post-op Topical CataractPaxton (DSU) Discharge Orders Discharge Orders: Discharge Order (Routine); Ordered 11/30/22 Ordered By: Braydon Degroot DS: Diagnosis Discharge Diagnosis (1) Nuclear age-related cataract, right eye: Status: Resolved (2) Posterior subcapsular age-related cataract, right eye: Status: Resolved
--- NOTE | 2022-11-30 09:59 | W.PM.OP ---
Date of service: 11/30/22 Time of Service: 09:59 Operative Note Operative Note DATE OF PROCEDURE: 11/30/22 PRE-OP DIAGNOSIS: Nuclear/posterior subcapsular cataract, right eye POST-OP DIAGNOSIS: same PROCEDURE: Cataract extraction using phacoemulsification with intraocular lens implant, right eye SURGEON: Braydon Degroot ANESTHESIA TYPE: Local By Surgeon and MAC Refer to Anesthesia Record ESTIMATED BLOOD LOSS: 0 PATHOLOGY: none sent COMPLICATIONS: None Patient was transported to: same day Patient's condition: stable Implants: Marc & Marc Tecnis Eyhance [id number] Indications: Progressive visual loss due to cataract, right eye Procedure Description: CATARACT SURGERY OPERATIVE REPORT PREOPERATIVE DIAGNOSIS: 1. Nuclear/posterior subcapsular cataract, right eye POSTOPERATIVE DIAGNOSIS: Same OPERATION: 1. Cataract extraction using phacoemulsification with posterior chamber intraocular lens implant, right eye. IOL: IOL Retail Project Merchandiser/Model: Marc & Marc Tecnis Eyhance DIB00 IOL Power: + 16.5 diopters IOL Serial Number: [id number] Optic Diameter: 6.0mm Haptic/Overall Diameter: 13.0mm PHACO INFO: John Aquacueurion Vision System with OZil and Active Fluidics Cumulative Dispersed Energy (CDE): 9.07 seconds SURGEON: Braydon Degroot MD, ALESSANDRA ANESTHESIA: Monitored Anesthesia Care (MAC), with local sub-tenon's anesthetic infiltration COMPLICATIONS: None SPECIMENS: None INDICATIONS FOR PROCEDURE: The patient is a 77-year-old male with history of diminished visual acuity in his right eye secondary to the development of nuclear/posterior subcapsular cataract. He is significantly symptomatic that he desires cataract surgery and attempt to improve and maximize his vision. The option of cataract surgery was offered to the patient and he wished to proceed. See office notes for detailed information. PROCEDURE: The correct surgical eye was identified and marked as the right eye and the pupil was dilated in the preoperative area using mydriatics and cycloplegics. The dilated pupil size was 6.0 mm. The patient elected to proceed without oral sedation. The patient was brought to the operating room where cardiopulmonary monitoring was instituted and surgical time-out was performed, confirming the correct operative eye and IOL power. Topical anesthesia was administered and ophthalmic povidone-iodine 5% was instilled into the conjunctival fornices. The zaina-ocular area was prepped with Betadine 10% solution and draped in the usual sterile fashion for intraocular surgery, including an aperture drape. A Tegaderm transparent film dressing was cut in half and used to cover the lashes and lid margins. Care was taken to sequester the lashes and lid margins under the Tegaderm dressing. A lid speculum was placed between the lids of the operative eye and the John LuxOR Revalia operating microscope was maneuvered into position. Kareen scissors were then used to make a conjunctival buttonhole approximately 6mm posterior to the limbus in the inferonasal quadrant. Blunt dissection was carried out to expose bare sclera, and a blunt-tipped sub-tenon?s anesthesia cannula was introduced and passed posteriorly along the globe where non-preserved plain lidocaine was injected into posterior sub-Tenon?s space. A sideport knife was used to make a paracentesis port. Intraocular phenylephrine/lidocaine was injected into the anterior chamber. The anterior chamber was filled with viscoelastic. A keratome knife was used to construct a 2-plane clear corneal tunnel extending 2.0mm into clear cornea. A flap was raised on the anterior capsule and capsulorhexis forceps were used to complete a continuous curvilinear capsulorhexis of 5.5 mm. Balanced salt solution was then used to perform cortical cleaving hydrodissection and nuclear hydrodelineation until the lens could be freely rotated within the capsular bag. The lens nucleus was then disassembled and removed within the capsular bag and iris plane using phacoemulsification. Residual cortical material was removed using the I/A handpiece. The posterior capsule was carefully polished to remove as much residual lens epithelial cells as safely possible. The capsular bag was then inflated and the anterior chamber deepened with cohesive viscoelastic. The lens implant described above was inserted into the capsular bag using the Marc and Remedi SeniorCareelizabeth Simplicity pre-loaded injector. A Kuglen hook was used to dial the IOL into position. Residual viscoelastic was then removed first from posterior to the IOL, then from the anterior chamber using the I/A handpiece. The lens implant was noted to center nicely within the capsular bag. The incisions were stromally hydrated, and the anterior chamber was reformed using BSS. Then 0.5cc of moxifloxacin 1.0mg/ml were injected into the capsular bag and anterior chamber. The incisions were checked with a Weck spear and found to be secure. Several drops of ophthalmic povidone-iodine 5% were then applied to the eye followed by two drops of Imprimis combination prednisolone/moxifloxacin/nepafenac solution. The drapes were removed and a clear plastic protective eye shield was placed over the eye. The patient was then returned to Same Day Surgery in stable condition.
--- NOTE | 2022-11-30 10:09 | W.ANESPOSTOP ---
Postoperative Evaluation Date, Time and Location Date Performed: 11/30/22 Time Performed: 10:09 Patient Location: Day Surgery Unit Vital Signs Most Recent Imported Vital Signs: Most Recent Vital Signs Temp Pulse Resp BP Pulse Ox 36.6 C 60 16 160/80 H 99 11/30/22 09:58 11/30/22 09:58 11/30/22 09:58 11/30/22 09:58 11/30/22 09:58 Pain Score Most Recent Pain Score: Most Recent Pain Score Pain Level 0 11/30/22 09:58 Assessment Mental Status: Awake (Alert & Oriented to Patient Baseline) Airway and Respiratory Function: Patent airway with normal (patient baseline) respiratory exam Cardiovascular Function: Hemodynamically Stable Hydration Status: Adequately Hydrated Nausea & Vomiting: No Nausea or Vomiting Pain: Pt. Denies Any Pain Peripheral Nerve Block: Patient did not receive a nerve block
== END 2022-11-30 10:28 | disposition home or self-care (01) ==
PROVIDERS: PCP Internal Medicine; Visit Provider Ophthalmology
PROC: (CPT 66984; principal; 2022-11-30 09:30)
DX: H25.11 Age-related nuclear cataract, right eye (principal); H25.041 Posterior subcapsular polar age-related cataract, right eye
CPT/HCPCS: 66984; V2632

== ENCOUNTER 2022-12-14 07:43 | Day surgery (SDC) | payer MEDICARE, SELFPAY ==
--- NOTE | 2022-12-14 07:39 | W.ANESPRE ---
General Info Date of Service Date Performed: 12/14/22 Height: 5 ft 11 in Weight: 106.2 kg Body Mass Index (BMI): 32.6 Surgical Procedure: Operation Date: 12/14/22 09:40 Proposed Procedure Side Surgeon p Cataract Extraction with IOL Implant Left Braydon Degroot MD Meds Allergies and Home Medications Allergies Allergy/AdvReac Type Severity Reaction Status Date / Time fluorouracil Allergy Other (See Unverified 12/14/22 07:54 Comment) NSAIDS (Non-Steroidal Allergy Contraindic Unverified 12/14/22 07:54 Anti-Inflamma ation caffeine AdvReac Intermediate Rapid Unverified 12/14/22 07:54 Heartbeat metronidazole [From Flagyl] AdvReac Verified 12/14/22 07:54 Home Medication Medication Instructions Recorded multivitamin 1 unit PO DAILY 10/13/12 omeprazole 20 mg capsule,delayed 20 mg PO DAILY 10/13/12 release (Prilosec) tacrolimus 1 mg capsule, 3 tab PO BID 10/13/12 immediate-release (Prograf) amlodipine 5 mg tablet 5 mg PO DAILY 06/21/15 cholecalciferol (vitamin D3) 50 2,000 units PO BID 06/21/15 mcg (2,000 unit) capsule (Vitamin D3) docusate sodium 100 mg capsule 100 mg PO BID 06/21/15 (Stool Softener) lisinopril 10 mg tablet 10 mg PO DAILY 06/21/15 psyllium 1.7 g oral wafer 2 units PO DAILY 06/21/15 oxycodone 20 mg tablet 20 mg PO DAILY PRN 08/21/17 apixaban 5 mg tablet 5 mg PO BID 10/20/22 furosemide 40 mg tablet 40 mg PO DAILY 10/20/22 tadalafil 5 mg tablet (Cialis) 5 mg PO DAILY PRN 10/20/22 tamsulosin 0.4 mg capsule 0.4 mg PO DAILY 10/20/22 amoxicillin 500 mg capsule 1,000 mg PO DIRECTED 11/29/22 magnesium oxide 400 mg PO DAILY 11/29/22 multivitamin 1 tab PO DAILY 11/29/22 oxycodone 30 mg tablet,crush 30 mg PO DIRECTED 11/29/22 resistant,extended release 12 hr (OxyContin) oxycodone 5 mg tablet 5 mg PO Q6H PRN 11/29/22 vitamin A 10,000 unit tablet 10,000 unit PO DAILY 11/29/22 potassium chloride 10 mEq 10 meq PO DAILY 11/30/22 tablet,extended release Current Visit Medications: Current Medications Generic Name Dose Route Start Last Admin Trade Name Frederickq PRN Reason Stop Dose Admin Acetaminophen 1,000 mg 12/14/22 06:00 Acetaminophen 500 Mg Tab PO 01/13/23 05:59 Q4H PRN PRN Balanced Salt Solution 500 ml 12/14/22 06:00 Balanced Salt Soln.-Plus 500 Ml Bag OP 01/13/23 05:59 DIRECTED MANGO Miscellaneous Medication 0 ml 12/14/22 06:00 Prednisolone 1%, Moxifloxacin 0.5%, Nepafenac 0.1% 5ml Btl OS 01/13/23 05:59 DIRECTED MANGO Miscellaneous Medication 0 ml 12/14/22 06:00 Tropicam./Phenyleph. 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 Left shoulder tendinitis M75.82 Pre-operative examination Z01.818 Status post rotator cuff surgery Z98.890 Conductive hearing loss of left ear H90.12 Ankle sprain S93.409A Achilles tendinitis M76.60 Nuclear age-related cataract, right eye H25.11 Posterior subcapsular age-related cataract, right eye H25.041 Medical History Medical History A-fib Acquired hammer toe of right foot Actinic keratosis Arthralgia of ankle Cardiac pacemaker in situ Corry dual chamber Erectile dysfunction Hx of malignant melanoma Hx of malignant neoplasm of skin Hx of primary malignant neoplasm of liver Hx of skin cancer, basal cell Hx of squamous cell carcinoma of skin Hypertensive disorder Inflammatory dermatosis Kidney stone Low back pain Lower urinary tract symptoms due to benign prostatic hyperplasia Neuropathy Obesity Onychomycosis of toenail AVE (obstructive sleep apnea) PLMD (periodic limb movement disorder) Seasonal allergic rhinitis Tachycardia-bradycardia Toe infection Surgical History Surgical History (Updated 12/14/22 @ 07:53 by Talita Whitley) History of appendectomy History of cataract surgery History of liver biopsy History of liver recipient History of tonsillectomy S/P operative procedure on shoulder injection Tobacco Smoking/Tobacco Use Status: Never Alcohol Alcohol Intake: current Alcohol intake frequency: holidays/special occasions only Substance Use Substance use: Never Substance use type: does not use Vital Signs and Lab Results Lab Results Blood Type / Crossmatch: No Data to Display Complete Blood Count: No Data to Display Complete Metabolic Panel: No Data to Display Liver Function Panel: No Data to Display Coagulation Panel: No Data to Display Cardiac Panel: No Data to Display Arterial Blood Gas: No Data to Display Venous Blood Gas: No Data to Display Pancreas Panel: No Data to Display Thyroid Panel: No Data to Display Infectious Disease: No Data to Display Blood Cultures: No Data to Display Toxicology Panel: No Data to Display Imaging and Studies Imaging and Studies Study information below may be from another EMR and interpreted by another provider. Please see original notes in EMR for more complete details. EKG Summary: 10/14: paced. Echocardiogram Summary: 12/14: LVEF 65%, septal flatting, PASP 69 mmhg, moderate TR, mild . Anesthesia Assessment and Plan Anesthesia History Personal History: No History of Anesthesia Complications Family History: No Family History of Anesthesia Complications Exercise Tolerance Exercise Tolerance: Metabolic Equivalents>4 Cardiac & Pulmonary Exam Cardiac Exam: Normal S1/S2 Heart Sounds Pulmonary Exam: Clear Bilateral Breath Sounds Implantable Cardiac Device Does patient have a Pacemaker or an ICD?: Yes Device Aircraft Delivery Checker:: Medtronic Micra AV Reason for Placement:: tachy/rianna Date of Last Device Interrogation:: 10/10/2022: expecting explant as device has failed. Planning a trad. PPM Airway Exam Known Difficult Airway: No Mallampati Class: 4 Mouth Opening: Normal (> 3cm) Thyromental Distance: Greater than 3 cm Neck Range of Motion: Full ROM Neck Circumference: Normal Teeth Condition: Normal Dentition ASA Classification ASA Score: ASA 3 Emergency Case?: No NPO Status NPO Status: NPO Clears >2 hours, Solids >8 hours Anesthesia Plan Resuscitation Status: Full Code Anesthesia Technique: MAC Anesthesia Airway Planned: Natural Airway Monitors Used: Standard Monitors Preoperative Comments:: Past Anesthetic note: 77 yo male for cataract removal. Sig PMHx: afib (apixaban), HTN, pacer (tachy-rianna - due to be explanted), neuropathy, s/p liver transplant, AVE, Previous Anes: - RTC, glide 3 grade 1.
[2022-12-14 07:45] VITALS: BP 164/84; PULSE 66; RESP 16; TEMP 36.6; O2SAT 97
[2022-12-14] MEDS: Tropicam./Phenyleph. (1/2.5%) 5 ML BTL OS ×3 (07:53→08:16)
[2022-12-14 08:39] VITALS: BMI 32.6
[2022-12-14] MEDS: Balanced Salt Soln.-PLUS 500 ML BAG OP (08:56)
[2022-12-14] MEDS: Tetracaine 0.5% 4 ML BTL OS (08:58)
[2022-12-14] MEDS: Duovisc Viscoelastic System EACH 1 EACH (08:59)
[2022-12-14] MEDS: Lidocaine 1% Pres-Free 5 ML VIAL (08:59)
[2022-12-14] MEDS: Phenylephrine/Lidocaine (15/10) MG/ML 1 ML VIAL (09:00)
[2022-12-14] MEDS: Povidone-Iodine Ophth 30 ML BTL (09:00)
[2022-12-14 09:15] VITALS: BP 118/107; PULSE 60; RESP 16; TEMP 36.7; O2SAT 95
--- NOTE | 2022-12-14 09:20 | W.PM.DSUDISC ---
Date of service: 12/14/22 Time of Service: 09:23 Discharge Plan Disposition Patient Disposition: Home Discharge Details Attending Provider: Braydon Degroot Primary Care Provider: Monie Arce Home Meds and New Rx's Prescriptions: No Action tacrolimus [Prograf] 1 MG capsule 3 tab PO BID Patient Comments: 2.5 mg am and 2.5 mg pm multivitamin 1 EACH capsule 1 unit PO DAILY omeprazole [Prilosec] 20 MG capsule,delayed release(DR/EC) 20 mg PO DAILY amlodipine 5 MG tablet 5 mg PO DAILY lisinopril 10 MG tablet 10 mg PO DAILY docusate sodium [Stool Softener] 100 MG capsule 100 mg PO BID psyllium 1 EACH wafer 2 units PO DAILY cholecalciferol (vitamin D3) [Vitamin D3] 2,000 UNIT capsule 2,000 units PO BID amoxicillin 500 mg capsule 1,000 mg PO DIRECTED Patient Comments: TAKE FOUR CAPSULES BY MOUTH 1 HOUR PRIOR TO DENTAL PROCEDURE oxycodone 5 mg Tablet 5 mg PO Q6H PRN oxycodone [OxyContin] 30 mg tablet,oral only,ext.rel.12 hr 30 mg PO DIRECTED Patient Comments: TAKE ONE TABLET BY MOUTH EVERY 12 HOURS magnesium oxide 400 mg magnesium Tablet 400 mg PO DAILY multivitamin [TAB A GERONIMO] Tablet 1 tab PO DAILY vitamin A 10,000 unit Tablet 10,000 unit PO DAILY potassium chloride 10 mEq tablet extended release 10 meq PO DAILY Patient Comments: 6/ pt hasnt started oxycodone 20 MG tablet 20 mg PO DAILY PRN apixaban 5 mg Tablet 5 mg PO BID furosemide 40 mg Tablet 40 mg PO DAILY tamsulosin 0.4 mg Capsule 0.4 mg PO DAILY tadalafil [Cialis] 5 mg Tablet 5 mg PO DAILY PRN Rx Instructions: administer approximately 30min before sexual activity; do not use more than 1 dose per 24hrs Discharge Instructions Stand Alone Forms: Post-op Topical Cataract, Paxton Johnson (DSU) Discharge Orders Discharge Orders: Discharge Order (Routine); Ordered 12/14/22 Ordered By: Braydon Degroot DS: Diagnosis Discharge Diagnosis (1) Posterior subcapsular age-related cataract of left eye: Status: Resolved (2) Nuclear age-related cataract, left eye: Status: Resolved
--- NOTE | 2022-12-14 09:23 | ROE_ITS ---
Date of service: 12/14/22 Time of Service: 09: Operative Note Operative Note DATE OF PROCEDURE: 12/14/22 PRE-OP DIAGNOSIS: Nuclear/posterior subcapsular cataract, left eye POST-OP DIAGNOSIS: same PROCEDURE: Cataract extraction using phacoemulsification with intraocular lens implant, left eye SURGEON: Braydon Degroot ANESTHESIA TYPE: Local By Surgeon and MAC Refer to Anesthesia Record PATHOLOGY: none sent COMPLICATIONS: None Patient was transported to: same day Patient's condition: stable Implants: Marc and Marc Tecnis Eyhance [id number] Indications: Progressive decreased vision due to cataract, left eye Procedure Description: CATARACT SURGERY OPERATIVE REPORT PREOPERATIVE DIAGNOSIS: 1. Nuclear/posterior subcapsular cataract, left eye POSTOPERATIVE DIAGNOSIS: Same OPERATION: 1. Cataract extraction using phacoemulsification with posterior chamber intraocular lens implant, left eye. IOL: IOL Financial Analysis Manager/Model: Marc & Marc Tecnis Eyhance DIB00 IOL Power: + 17.5 diopters IOL Serial Number: [id number] Optic Diameter: 6.0 mm Haptic/Overall Diameter: 13.0 mm PHACO INFO: John Heroicurion Vision System with OZil and Active Fluidics Cumulative Dispersed Energy (CDE): 9.89 seconds SURGEON: Braydon Degroot MD, ALESSANDRA ANESTHESIA: Monitored A [facility] (MAC), with local sub-tenon's anesthetic infiltration COMPLICATIONS: None SPECIMENS: None INDICATIONS FOR PROCEDURE: The patient is a 77-year-old gentleman with history of diminished visual acuity in both eyes secondary to the development of bilateral cataract. He has already undergone cataract surgery in the right eye and is doing well postoperatively. He now presents for cataract surgery in the left eye. See office notes for detailed information. PROCEDURE: The correct surgical eye was identified and marked as the left eye and the pupil was dilated in the preoperative area using mydriatics and cycloplegics. The dilated pupil size was 6.0 mm. . The patient elected to proceed without oral sedation. The patient was brought to the operating room where cardiopulmonary monitoring was instituted and surgical time-out was performed, confirming the correct operative eye and IOL power. Topical anesthesia was administered and ophthalmic povidone-iodine 5% was instilled into the conjunctival fornices. The zaina-ocular area was prepped with Betadine 10% solution and draped in the usual sterile fashion for intraocular surgery, including an aperture drape. A Tegaderm transparent film dressing was cut in half and used to cover the lashes and lid margins. Care was taken to sequester the lashes and lid margins under the Tegaderm dressing. A lid speculum was placed between the lids of the operative eye and the John LuxOR Revalia operating microscope was maneuvered into position. Kareen scissors were then used to make a conjunctival buttonhole approximately 6mm posterior to the limbus in the inferonasal quadrant. Blunt dissection was carried out to expose bare sclera, and a blunt-tipped sub-tenon?s anesthesia cannula was introduced and passed posteriorly along the globe where non- preserved plain lidocaine was injected into posterior sub-Tenon?s space. A sideport knife was used to make a paracentesis port. Intraocular phenylephrine/lidocaine was injected into the anterior chamber.. The anterior chamber was filled with viscoelastic. A keratome knife was used to construct a 2-plane near-clear corneal tunnel extending 2.0mm into clear cornea. A flap was raised on the anterior capsule and capsulorhexis forceps were used to complete a continuous curvilinear capsulorhexis of 5.0 mm. Balanced salt solution was then used to perform cortical cleaving hydrodissection and nuclear hydrodelineation until the lens could be freely rotated within the capsular bag. The lens nucleus was then disassembled and removed within the capsular bag and iris plane using phacoemulsification. Residual cortical material was removed using the irrigation/aspiration handpiece. The posterior capsule was carefully polished to remove as much residual lens epithelial cells as safely possible. The capsular bag was then inflated and the anterior chamber deepened with viscoelastic. The lens implant described above was inserted into the capsular bag using the Marc and Marc Simplicity pre-loaded injector. A Kuglen hook was used to dial the IOL into position. Residual viscoelastic was then removed first from posterior to the IOL, then from the anterior chamber using the I/A handpiece. The lens implant was noted to center nicely within the capsular bag. The incisions were stromally hydrated, and the anterior chamber was reformed using BSS. Then 0.5cc of moxifloxacin 1.0mg/ml were injected into the capsular bag and anterior chamber. The incisions were checked with a Weck spear and found to be secure. Several drops of ophthalmic povidone-iodine 5% were then applied to the eye followed by two drops of Imprimis combination prednisolone/moxifloxacin/nepafenac solution. The drapes were removed and a clear plastic protective eye shield was placed over the eye. The patient was then returned to Same Day Surgery in stable condition.
--- NOTE | 2022-12-14 09:34 | W.ANESPOSTOP ---
Postoperative Evaluation Date, Time and Location Date Performed: 12/14/22 Time Performed: 09:34 Patient Location: Day Surgery Unit Vital Signs Most Recent Imported Vital Signs: Most Recent Vital Signs Temp Pulse Resp BP Pulse Ox 36.7 C 60 16 118/107 H 95 12/14/22 09:15 12/14/22 09:15 12/14/22 09:15 12/14/22 09:15 12/14/22 09:15 Pain Score Most Recent Pain Score: Most Recent Pain Score Pain Level 0 12/14/22 09:15 Assessment Mental Status: Awake (Alert & Oriented to Patient Baseline) Airway and Respiratory Function: Patent airway with normal (patient baseline) respiratory exam Cardiovascular Function: Hemodynamically Stable Hydration Status: Adequately Hydrated Nausea & Vomiting: No Nausea or Vomiting Pain: Pt. Denies Any Pain Peripheral Nerve Block: Other (Local by Dr. Degroot)
== END 2022-12-14 09:45 | disposition home or self-care (01) ==
LOC: SUR 07:43
PROVIDERS: PCP Internal Medicine; Visit Provider Ophthalmology
PROC: (CPT 66984; principal; 2022-12-14 09:30)
DX: H25.042 Posterior subcapsular polar age-related cataract, left eye (principal); H25.12 Age-related nuclear cataract, left eye; Z98.41 Cataract extraction status, right eye
CPT/HCPCS: 66984; V2632

== ENCOUNTER → 2023-05-08 14:27 | Outpatient (BNVA) | payer MEDICARE, SELFPAY | PROVIDERS: PCP Internal Medicine; Referring Provider Internal Medicine; Visit Provider Podiatrist | DX: M79.672 Pain in left foot (principal); M86.8X7 Other osteomyelitis, ankle and foot; L97.512 Non-pressure chronic ulcer of other part of right foot with fat layer exposed; B35.1 Tinea unguium; B07.0 Plantar wart ==

== ENCOUNTER 2023-05-08 15:35 | Outpatient (REF) | payer MEDICARE, SELFPAY ==
--- NOTE | 2023-05-08 15:00 | SKI_PTH ---
PATIENT: Rajiv Marcum LOC: [facility] U#:[id number] AGE/SX: 78/M ROOM: RE05/08/[address]: Ebony Dumont DPM : 1945 BED: DIS: 05/08/2023 SPEC #: [id number] RECD: 05/08/23 17:44 STATUS: BRICE REQ #: [id number] MAGALY: 05/08/23 15:[address]: Ebony Dumont DEPT: Surgical Specimen RECD BY: Michelle Sarah ENTERED: 05/08/23 17:46 SP TYPE: PAM BLANCA DR: Monie Arce Tissues: 1 - SKIN BIOPSY(SHAVE/PUNCH) 2 - SKIN BIOPSY(SHAVE/PUNCH) Procedures: SKIN LEVEL 4 Comments: [id number]
== END 2023-05-08 15:36 | disposition home or self-care (01) ==
LOC: LBN 15:35
PROVIDERS: PCP Internal Medicine; Visit Provider Podiatrist
DX: D23.71 Other benign neoplasm of skin of right lower limb, including hip (principal); L85.8 Other specified epidermal thickening; L98.8 Other specified disorders of the skin and subcutaneous tissue; L97.512 Non-pressure chronic ulcer of other part of right foot with fat layer exposed
CPT/HCPCS: 87070; 87075; 87205; 88305

== ENCOUNTER → 2023-05-08 19:10 | Outpatient (CLI) | payer MEDICARE, SELFPAY ==
--- NOTE | 2023-05-08 15:15 | DI.RAD_ITS ---
Exam(s) XR FOOT LT COMPLETE EXAM: XR FOOT LT COMPLETE CLINICAL HISTORY: pain in left foot. TECHNIQUE: 2D digital imaging was performed. Three views. COMPARISON: CR XR FOOT LT LIMITED from 10/07/2019 FINDINGS: Evaluation of the phalanges of the toes are difficult due to hammertoe deformities. Distal phalanges not well profiled. BONES: No acute fracture is present. No gross bony destructive lesion is seen. Heel spur JOINTS: No dislocation present. Minimal degenerative changes. SOFT TISSUE: Vascular calcifications. IMPRESSION: Hammertoe deformities. No definite bony erosions. DATA REPOSITORY: RADIATION DOSE DELIVERED:
--- NOTE | 2023-05-08 15:15 | DI.RAD_ITS ---
Exam(s) XR FOOT RT COMPLETE EXAM: XR FOOT RT COMPLETE CLINICAL HISTORY: osteomyelitis right foot. TECHNIQUE: 2D digital imaging was performed. Three views. COMPARISON: CR XR FOOT LT COMPLETE from 05/08/2023 FINDINGS: BONES: No acute fracture is present. Erosion at the tuft of the distal phalanx, consistent shows for osteomyelitis. JOINTS: No dislocation present. Hammertoe deformities. SOFT TISSUE: Soft tissue swelling over great toe. No foreign body. IMPRESSION: Tuft ulceration suspicious or osteomyelitis. DATA REPOSITORY: RADIATION DOSE DELIVERED:
== END ==
PROVIDERS: PCP Internal Medicine; Visit Provider Podiatrist
DX: M79.672 Pain in left foot (principal); M86.9 Osteomyelitis, unspecified
CPT/HCPCS: 11042; 11721; 99214; 73630

== ENCOUNTER 2023-05-10 09:07 | Outpatient (REF) | payer MEDICARE, SELFPAY | END 2023-05-10 09:08 | LOC: NCHCN 09:07 | PROVIDERS: PCP Internal Medicine; Visit Provider Podiatrist | DX: M86.171 Other acute osteomyelitis, right ankle and foot (principal); Z89.421 Acquired absence of other right toe(s) | CPT/HCPCS: 87077; 87070; 87075; 87186; 87205 ==

== ENCOUNTER → 2023-05-22 15:00 | Outpatient (BNVA) | payer MEDICARE, SELFPAY | PROVIDERS: PCP Internal Medicine; Referring Provider Internal Medicine; Visit Provider Podiatrist | DX: M86.9 Osteomyelitis, unspecified (principal); L97.512 Non-pressure chronic ulcer of other part of right foot with fat layer exposed; B07.0 Plantar wart; M79.672 Pain in left foot; Z89.421 Acquired absence of other right toe(s); R23.4 Changes in skin texture; R09.89 Other specified symptoms and signs involving the circulatory and respiratory systems; L65.9 Nonscarring hair loss, unspecified | CPT/HCPCS: 11042; 17110 ==

== ENCOUNTER → 2023-05-24 00:45 | Outpatient (CLI) | payer MEDICARE, SELFPAY ==
--- NOTE | 2023-05-24 | DI.RAD_ITS ---
Exam(s) XR FOOT RT COMPLETE EXAM: XR FOOT RT COMPLETE CLINICAL HISTORY: post op, Osteomyelitis M86.9. TECHNIQUE: 2D digital imaging was performed. COMPARISON: CR XR FOOT RT COMPLETE from 05/08/2023 FINDINGS: 3 views There has been interval amputation of the great toe distal phalanx at its mid aspect. The visualized osseous surgical edge at this level appears intact. There is no gas in the soft tissu es. Proximal phalanx of the great toe appears unremarkable as does the great toe metatarsal and greta cent phalanges of the 2nd toe. IMPRESSION: Interval partial amputation of the distal phalanx of the great toe. No obvious radiographic evidence of osteomyelitis at this time. DATA REPOSITORY: RADIATION DOSE DELIVERED:
== END ==
PROVIDERS: PCP Internal Medicine; Visit Provider Podiatrist
DX: Z98.890 Other specified postprocedural states (principal); S98.1 Traumatic amputation of one toe; X58.XXXD Exposure to other specified factors, subsequent encounter
CPT/HCPCS: 73630

== ENCOUNTER → 2023-08-13 14:26 | Outpatient (BNVA) | payer MEDICARE, SELFPAY | PROVIDERS: PCP Internal Medicine; Referring Provider Internal Medicine; Visit Provider Podiatrist | DX: M86.9 Osteomyelitis, unspecified (principal); L97.512 Non-pressure chronic ulcer of other part of right foot with fat layer exposed; B07.0 Plantar wart; L97.519 Non-pressure chronic ulcer of other part of right foot with unspecified severity; M79.672 Pain in left foot; Z89.411 Acquired absence of right great toe; L60.3 Nail dystrophy; R09.89 Other specified symptoms and signs involving the circulatory and respiratory systems; R60.0 Localized edema; L65.9 Nonscarring hair loss, unspecified; R23.4 Changes in skin texture; B35.1 Tinea unguium; I73.9 Peripheral vascular disease, unspecified; R20.8 Other disturbances of skin sensation | CPT/HCPCS: 11042; 11055; 11721; 97597 ==

== ENCOUNTER → 2023-08-28 14:19 | Outpatient (BNVA) | payer MEDICARE, SELFPAY | PROVIDERS: PCP Internal Medicine; Referring Provider Internal Medicine; Visit Provider Podiatrist | DX: M86.9 Osteomyelitis, unspecified; L97.512 Non-pressure chronic ulcer of other part of right foot with fat layer exposed; B07.0 Plantar wart; L97.519 Non-pressure chronic ulcer of other part of right foot with unspecified severity; M79.672 Pain in left foot; S98.111A Complete traumatic amputation of right great toe, initial encounter; X58.XXXA Exposure to other specified factors, initial encounter | CPT/HCPCS: 11042; 28010; 97597 ==

== ENCOUNTER → 2023-09-12 13:49 | Outpatient (BNVA) | payer MEDICARE, SELFPAY | PROVIDERS: PCP Internal Medicine; Referring Provider Internal Medicine; Visit Provider Podiatrist | DX: M86.9 Osteomyelitis, unspecified; L97.512 Non-pressure chronic ulcer of other part of right foot with fat layer exposed; B07.0 Plantar wart; M79.672 Pain in left foot; S98.111A Complete traumatic amputation of right great toe, initial encounter; X58.XXXA Exposure to other specified factors, initial encounter | CPT/HCPCS: 11042; 97597 ==

== ENCOUNTER → 2023-10-08 13:05 | Outpatient (BNVA) | payer MEDICARE, SELFPAY | PROVIDERS: PCP Internal Medicine; Referring Provider Internal Medicine; Visit Provider Podiatrist | DX: B07.0 Plantar wart; S98.111A Complete traumatic amputation of right great toe, initial encounter; X58.XXXA Exposure to other specified factors, initial encounter | CPT/HCPCS: 17110 ==

== ENCOUNTER → 2023-12-10 12:50 | Outpatient (BNVA) | payer MEDICARE, SELFPAY | PROVIDERS: PCP Internal Medicine; Referring Provider Internal Medicine; Visit Provider Podiatrist | DX: B07.0 Plantar wart; Z89.411 Acquired absence of right great toe; B35.1 Tinea unguium; L60.3 Nail dystrophy; I73.89 Other specified peripheral vascular diseases | CPT/HCPCS: 11721; 17110 ==

== ENCOUNTER → 2024-01-22 09:45 | Outpatient (BNVA) | payer MEDICARE, SELFPAY | PROVIDERS: PCP Internal Medicine; Referring Provider Internal Medicine; Visit Provider Podiatrist | DX: B07.0 Plantar wart (principal); Z89.411 Acquired absence of right great toe; B35.1 Tinea unguium; L60.3 Nail dystrophy; L97.522 Non-pressure chronic ulcer of other part of left foot with fat layer exposed; I48.91 Unspecified atrial fibrillation | CPT/HCPCS: 11042; 17110; 93922 ==

== ENCOUNTER 2025-01-22 07:35 | Emergency (ER) | payer MEDICARE, SELFPAY ==
[2025-01-22 07:40] VITALS: BP 211/73; PULSE 71; RESP 16; TEMP 36.5; O2SAT 97
--- NOTE | 2025-01-22 08:15 | DI.RAD_ITS ---
Exam(s) XR KNEE RT 3V AP,LAT,SERENA EXAM: XR KNEE RT 3V AP,LAT,SERENA CLINICAL HISTORY: R medial knee pain with mild swelling after twist. TECHNIQUE: 2D digital imaging was performed. COMPARISON: No exams were available for comparison FINDINGS: 3 views No evidence of acute fracture but there is a significant joint effusion implying the presence of probable internal derangement. There is no joint space narrowing, particularly given this patient's advanced age. No degenerative changes evident. No osseous lesions. IMPRESSION: No acute osseous findings but there is a joint effusion implying presence of a probable significant internal derangement. DATA REPOSITORY: RADIATION DOSE DELIVERED:
--- NOTE | 2025-01-22 08:40 | W.ED.GENAD ---
Discharge Plan Disposition Patient Disposition: Home Discharge Details Clinical Impression: Acute pain of left knee, Hypertensive disorder Primary Care Provider: Monie Arce ED Provider: Sarah Duval Home Meds and New Rx's Prescriptions: No Action Entresto 24-26 mg tablet 1 tab PO BID docusate sodium [Stool Softener] 100 mg capsule 50 mg PO BID sildenafil 100 mg tablet 100 mg PO DAILY PRN Rx Instructions: administer 30 minutes to 4 hours before activity metoprolol succinate 100 mg tablet extended release 24 hr 100 mg PO DAILY ketoconazole 2 % cream 1 applic topical DAILY 90 Days Qty: 60 3RF Rx Instructions: Apply to toenails once daily Eliquis 5 mg tablet 5 mg PO BID fluticasone propion-salmeterol [Advair HFA] 115-21 mcg/actuation HFA aerosol inhaler 2 puff inhalation BID amiodarone 200 mg tablet 200 mg PO .Q8hrs Patient Comments: plan to decrease to QD, in the next 2 weeks. 09/12/23 Eliquis 5 mg tablet 5 mg PO BID fluticasone propion-salmeterol [Advair HFA] 115-21 mcg/actuation HFA aerosol inhaler 2 puff inhalation BID tacrolimus [Prograf] 1 MG capsule 3 tab PO BID Patient Comments: 2.5 mg am and 2.5 mg pm omeprazole [Prilosec] 20 MG capsule,delayed release(DR/EC) 20 mg PO DAILY psyllium 1 EACH wafer 2 units PO DAILY magnesium oxide 400 mg magnesium Tablet 400 mg PO DAILY oxycodone 5 mg tablet 10 mg PO Q4H PRN Rx Instructions: 1/2 tab every 4 hours as needed. oxycodone [OxyContin] 30 mg tablet,oral only,ext.rel.12 hr 40 mg PO DIRECTED Patient Comments: TAKE ONE TABLET BY MOUTH EVERY 12 HOURS furosemide 40 mg tablet 40 mg PO DAILY PRN lisinopril 20 mg tablet 20 mg PO DAILY Patient Comments: TAKE ONE TABLET BY MOUTH EVERY DAY Discharge Instructions Instructions: Knee Brace ED Additional Instructions: Referral has been placed to orthopedics, please call on Saturday to schedule follow-up appointment. A referral to physical therapy may be indicated Your blood pressure was very elevated today. Please take your medications as prescribed when you get home. I recommend that you check your blood pressure at home routinely; call your primary care provider to schedule follow-up appointment for management of your blood pressure. Continue to use the knee brace with crutches, weightbearing as tolerated. Elevate your leg above heart level and continue to use ice for 15 to 20 minutes at a time every hour to help with swelling Return to emergency care if you develop new numbness/blueness/color change to your leg, severe knee pain, fevers associated with knee pain, chest pains, shortness of breath, episodes of dizziness/passing out, or if you are very worried and need to be rechecked again immediately Referrals: [facility] [Provider Group] Discharge Data Discharge Date/Time-TO BE ENTERED AT DEPARTURE: 01/22/25 09:21 HPI General Date/Time Provider Initiated Documentation: 01/22/25 08:07. HPI Narrative: Rajiv is a 80-year-old male who presents to the emergency department today for evaluation of left knee pain. Two days ago, twisted knee stepping into a hole in the grass. No fall or head injury, denied other associated injuries. At the time of the injury he did not have any cracking/popping sensation. He has been unable to bear weight due to pain, denies instability with weightbearing. Has been walking with a crutch. He is able to fully extend the leg, but is unable to fully bend the knee due to discomfort. He reports swelling and pain with palpation to the medial aspect of the left knee. Denies associated numbness/tingling. Managing pain with oxycodone and ice. No previous knee injuries or surgeries. Has a PCP he can follow-up with. 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 No transplant issues, medication restrictions. Atrial fibrillation managed with Eliquis, now in normal rhythm. Also has history of hypertension, BPH, neuropathy. PAST SURGICAL HISTORY: Liver transplant 30 years ago. Related Data Home Medications ?Medication ?Instructions ?Recorded ?Confirmed omeprazole 20 mg capsule,delayed 20 mg PO DAILY 10/13/12 01/22/25 release (Prilosec) tacrolimus 1 mg capsule, 3 tab PO BID 10/13/12 01/22/25 immediate-release (Prograf) psyllium 1.7 g oral wafer 2 units PO DAILY 06/21/15 01/22/25 magnesium oxide 400 mg PO DAILY 11/29/22 01/22/25 docusate sodium 100 mg capsule 50 mg PO BID 05/08/23 01/22/25 (Stool Softener) ketoconazole 2 % topical cream 1 applic topical DAILY 3 months 05/08/23 01/22/25 #60 grams metoprolol succinate 100 mg 100 mg PO DAILY 05/08/23 01/22/25 tablet,extended release 24 hr sacubitril 24 mg-valsartan 26 mg 1 tab PO BID 05/08/23 01/22/25 tablet (Entresto) sildenafil 100 mg tablet 100 mg PO DAILY PRN 05/08/23 01/22/25 furosemide 40 mg tablet 40 mg PO DAILY PRN 08/13/23 01/22/25 apixaban 5 mg tablet (Eliquis) 5 mg PO BID 08/27/23 01/22/25 fluticasone propionate 115 2 puff inhalation BID 08/27/23 01/22/25 mcg-salmeterol 21 mcg/actuation HFA inhaler (Advair HFA) amiodarone 200 mg tablet 200 mg PO .Q8hrs 09/12/23 01/22/25 apixaban 5 mg tablet (Eliquis) 5 mg PO BID 03/30/24 01/22/25 fluticasone propionate 115 2 puff inhalation BID 03/30/24 01/22/25 mcg-salmeterol 21 mcg/actuation HFA inhaler (Advair HFA) oxycodone 30 mg tablet,crush 40 mg PO DIRECTED 03/30/24 01/22/25 resistant,extended release 12 hr (OxyContin) oxycodone 5 mg tablet 10 mg PO Q4H PRN 03/30/24 01/22/25 lisinopril 20 mg tablet 20 mg PO DAILY 01/22/25 01/22/25 Previous Rx's ?Medication ?Instructions ?Recorded ketoconazole 2 % topical cream 1 applic topical DAILY 3 months 05/08/23 #60 grams Allergies Allergy/AdvReac Type Severity Reaction Status Date / Time fluorouracil Allergy Other (See Verified 01/22/25 07:46 Comment) NSAIDS (Non-Steroidal Allergy Contraindic Verified 01/22/25 07:46 Anti-Inflamma ation caffeine AdvReac Intermediate Rapid Verified 01/22/25 07:46 Heartbeat metronidazole (From Flagyl) AdvReac Other (See Verified 01/22/25 07:46 Comment) General Stated Complaint: Orthopedic KEVIN: 4 Exam Narrative Exam Narrative: General Appearance: Normal. Patient is alert and oriented, no acute distress Vital signs: Hypertension noted, no tachycardia. Back, Musculoskeletal: No knee laxity with varus/valgus stress test and anterior/posterior drawer test.. Limited range of motion, unable to fully straighten or bend knee without pain. Tenderness over medial aspect of knee. Skin: Warm and dry, no rashes or overlying skin tears/lesions. No ecchymosis. Psychiatric: Normal. Course Vital Signs Vital signs: Vital Signs Temperature 36.5 C 01/22/25 07:40 Pulse 71 01/22/25 07:40 Respiratory Rate 16 01/22/25 07:40 Blood Pressure 211/73 H 01/22/25 07:40 Pulse Oximetry 97 01/22/25 07:40 Temperature 36.5 C 01/22/25 07:40 Temperature Source Tympanic 01/22/25 07:40 Pulse 71 01/22/25 07:40 Respiratory Rate 16 01/22/25 07:40 Blood Pressure 211/73 H 01/22/25 07:40 Pulse Oximetry 97 01/22/25 07:40 Oxygen Delivery Method Room Air 01/22/25 07:40 Oxygen Flow Rate 0 01/22/25 07:40 Medical Decision Making Initial Assessment: 80-year-old male with knee pain after twisting knee. Unable to bear weight, significant pain, no previous knee injuries, no numbness or tingling. Differential Diagnosis includes but is not limited to: - MCL tear: No obvious laxity, significant pain, unable to straighten leg. Orthopedic evaluation recommended. - Avulsion fracture or other knee fracture: X-ray ordered to rule out fractures. - Other soft tissue injury/sprain, Meniscal injury - No red flags concerning for dislocation, septic joint, or neurovascular compromise ED Course: - X-ray ordered Final Assessment: X-ray ordered to rule out fractures. Knee brace provided. Discussed case with Dr. Quinonez, orthopedic surgeon. He recommends knee brace with crutches and weightbearing as tolerated. Clinical Impression: - Knee pain - Possible MCL tear - Significant hypertension noted, patient reports he does have whitecoat syndrome and is often hypertensive in doctors offices. Also did not take morning medications, including multiple antihypertensive meds Disposition: Discharge: Home, follow-up with orthopedics. Follow-Up: Orthopedic referral for further evaluation. Patient Education: Reviewed discharge instructions with patient, including symptomatic management flags indicating need for return to emergency care. Discussed importance of orthopedic follow-up. Advised on knee brace use. Patient consented to the use of VELMA Imaging Data Radiologic Study: Radiologist's impression: Exam(s) XR KNEE RT 3V AP,LAT,SERENA EXAM: XR KNEE RT 3V AP,LAT,SERENA CLINICAL HISTORY: R medial knee pain with mild swelling after twist. TECHNIQUE: 2D digital imaging was performed. COMPARISON: No exams were available for comparison FINDINGS: 3 views No evidence of acute fracture but there is a significant joint effusion implying the presence of probable internal derangement. There is no joint space narrowing, particularly given this patient's advanced age. No degenerative changes evident. No osseous lesions. IMPRESSION: No acute osseous findings but there is a joint effusion implying presence of a probable significant internal derangement. PFSH All Active Problems (Updated 01/22/25 @ 09:00 by Sarah Marks) Acute pain of left knee (Acute) Chronic ulcer of left foot with fat layer exposed (Acute) Ulcer of left foot with fat layer exposed (Acute) Nail dystrophy (Acute) Onychomycosis (Acute) Amputation of right great toe (Acute) Immunocompromised (Acute) liver transplant 2011; LT Prograf Tachycardia-bradycardia (Acute) Seasonal allergic rhinitis (Acute) PLMD (periodic limb movement disorder) (Acute) AVE (obstructive sleep apnea) (Chronic) Onychomycosis of toenail (Acute) Neuropathy (Acute) Lower urinary tract symptoms due to benign prostatic hyperplasia (Acute) Inflammatory dermatosis (Acute) Hypertensive disorder (Chronic) Cardiac pacemaker in situ (Acute) [employer] scientific dual chamber [place] [facility] A-fib (Chronic) Plantar verruca (Acute) 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 (Acute) Achilles tendinitis (Acute) Medical History Ulcer of right foot with fat layer exposed Chronic ulcer of right foot Osteomyelitis of right foot Pain in left foot Ankle sprain Pre-operative examination Left shoulder tendinitis Obesity Low back pain Kidney stone Hx of squamous cell carcinoma of skin Hx of primary malignant neoplasm of liver Hx of malignant neoplasm of skin Hx of skin cancer, basal cell Hx of malignant melanoma Erectile dysfunction Arthralgia of ankle Actinic keratosis Acquired hammer toe of right foot Toe infection Surgical History Status post amputation of toe 05/13/23 [facility] surgical; Dr. Tj Treviño; distal resection of the R great toe. (pathology sent to [facility]) Posterior subcapsular age-related cataract of left eye Nuclear age-related cataract, left eye Posterior subcapsular age-related cataract, right eye Nuclear age-related cataract, right eye Status post rotator cuff surgery History of cataract surgery History of tonsillectomy History of appendectomy History of liver biopsy S/P operative procedure on shoulder injection History of liver recipient Family History Brother Atrial fibrillation Cancer Hypertension Sister Hypertension Social History Smoking/Tobacco Use Status: Never Smoking risk assessment performed?: Yes Alcohol Intake: current Alcohol Intake frequency: holidays/special occasions only Drug use: Never Substance use type: does not use Housing: house Do you feel safe at home: Yes Do you feel safe in your relationship?: Yes
[2025-01-22 08:44] VITALS: BP 218/81
[2025-01-22 09:17] VITALS: BP 205/78; PULSE 60; RESP 16; O2SAT 97
== END 2025-01-22 09:21 | disposition home or self-care (01) ==
PROVIDERS: Emergency Provider Nurse Practitioner Family; PCP Internal Medicine
DX: M25.561 Pain in right knee (principal); M25.461 Effusion, right knee; I10 Essential (primary) hypertension; I48.91 Unspecified atrial fibrillation; Z79.01 Long term (current) use of anticoagulants; Z94.4 Liver transplant status
CPT/HCPCS: 73562; 99283

== ENCOUNTER → 2025-02-09 13:52 | Outpatient (BNVA) | payer MEDICARE, SELFPAY | PROVIDERS: PCP Internal Medicine; Referring Provider Internal Medicine; Visit Provider Student in an Organized Health Care Education/Training Program | DX: M23.306 Other meniscus derangements, unspecified meniscus, right knee (principal) | CPT/HCPCS: 99213; 20610; J1010 ==

== ENCOUNTER 2025-03-04 19:07 | Emergency (ER) | payer MEDICARE, SELFPAY ==
[2025-03-04 19:20] VITALS: BP 191/90; PULSE 77; RESP 18; TEMP 37.1; O2SAT 98
[2025-03-04 19:25] VITALS: BP 191/90; PULSE 77; RESP 18; TEMP 37.1; O2SAT 98
[2025-03-04 20:20] LABS: Abs Immature Grans 0.05 10^3/uL (0.0-0.06); HCT 43.0 % (40.0-50.0); HGB 13.8 g/dL (13.5-17.5); Immature Grans % 0.4 %; MCH 28.7 pg (27.0-33.0); MCHC 32.1 % (32.0-36.0); MCV 89 fL (80-95); MPV 8.6 fL (8.0-11.0); Platelet Count 161 10^3/uL (130-400); RBC 4.81 10^6/uL (4.36-5.78); RDW 12.8 % (11.8-14.1); RDW-SD 42.6 fL; WBC 11.26 10^3/uL (4.4-10.8)
[2025-03-04 20:22] LABS: Glucose Negative (Negative)
[2025-03-04 20:27] LABS: C & S Indicated? No; RBC 0-2 HPF (0-2); WBC 0-2 HPF (0-5)
[2025-03-04 20:38] LABS: ALT 20 U/L (16-63); AST 15 U/L (15-37); Albumin 3.7 g/dL (3.4-5.0); Alkaline Phosphatase 122 U/L (46-116); Anion Gap 5.9 mmol/L (3-11); BUN 13 mg/dL (7-18); Bilirubin, Total 1.0 mg/dL (0.2-1.0); CO2 30.1 mmol/L (21.0-32.0); Calcium 8.9 mg/dL (8.5-10.1); Chloride 102 mmol/L (98-107); Estimated GFR 75.14 (mL/min/1.73m2); Glucose 121 mg/dL (74-106); Potassium 4.1 mmol/L (3.5-5.1); Sodium 138 mmol/L (136-145); Total Protein 8.2 g/dL (6.4-8.2)
[2025-03-04 20:41] LABS: Lipase 835 U/L (<78)
[2025-03-04] MEDS: Omnipaque 350 MG/ML 100 ML BTL IJ (21:06)
[2025-03-04] MEDS: Normal Saline - Diluent 50 ML VIAL IJ (21:06)
[2025-03-04] MEDS: Normal Saline Flush 10 ML SYR IVP (21:07)
--- NOTE | 2025-03-04 21:15 | DI.CT_ITS ---
Exam(s) CT ABDOMEN PELVIS W EXAM: CT ABDOMEN PELVIS W CLINICAL HISTORY: pain, hx of diverticulitis. TECHNIQUE: Imaging Protocol: Axial computed tomography images with coronal and sagittal reformatted images were created and reviewed CONTRAST MATERIAL: Intravenous: Omnipaque-350 100cc Oral: None COMPARISON: CT UPPER ABD WITH CONTRAST (P) from 11/15/2010 FINDINGS: VISUALIZED LUNG BASES: No nodules nor pleural effusions evident. Cardiac pacemaker wires noted in the heart. ABDOMEN: There is no ascites. LIVER: There are no focal hepatic lesions evident. No dilated intrahepatic ducts. GALLBLADDER/BILIARY: The gallbladder is surgically absent. CBD is not dilated. PANCREAS: There is a small cyst in the pancreatic neck which measures 10 x 9 mm. It has only slightly increased in size when compared to the prior CT scan of October 2010. There is mild streaking around the pancreas suspicious for pancreatitis. There is no formed fluid collection. The pancreatic duct is not dilated. There are no pancreatic calcifications. SPLEEN: Size is upper normal. There are no splenic lesions. The splenic and portal veins are patent. ADRENALS: There are no significant adrenal masses. KIDNEYS:There is a benign exophytic cyst off the anterior bladder cortex of left kidney measuring 4.3 by 3.5 cm. Does not require further workup. There are no solid renal masses. However, there is bilateral nephrolithiasis. There is a 3 millimeter calculus in lower pole calyx of the right kidney. There are 2 adjacent larger calculi in the upper pole region of the left kidney. The larger of these 2 calculi measures 6-7 mm. There are no calculi seen in the nondilated ureters. However, there are calculi seen in the the right-side of the urinary bladder. The largest calculus in the bladder measures approximately 1 cm. . ABDOMINAL AORTA: Abdominal aorta is not enlarged. LYMPH NODES:There is an enlarged lymph node just medial to the caudate lobe of the liver which measures 1.5 x 1.0 cm. No other lymphadenopathy evident. ABDOMINAL WALL: There is a fat only containing left paraumbilical hernia. There is also a left anterior abdominal wall fat only containing hernia. There is a fat only containing right inguinal hernia. GI: There is no evidence of bowel obstruction, free air, nor abscess. PELVIS: GI: Appendix is not seen and may be surgically absent. There is no evidence of acute appendicitis.There diverticuli in the left side of the colon and sigmoid but no evidence of obvious acute diverticulitis. LYMPH NODES: There is no intrapelvic nor inguinal adenopathy. REPRODUCTIVE: Significantly enlarged prostate gland. This measures 7 cm wide and exhibits some lobulation. There is no obvious obturator adenopathy. URINARY BLADDER: There is thickening of the urinary bladder wall which may be related to under distension. There are 2 calculi seen in the right-side of the urinary bladder. The larger of these calculi measures 1 cm. OSSEOUS: No fractures and no significant osseous lesions. Mild degenerative anterolisthesis of L4 upon L5. This is related to facet arthropathy. There are no pars defects. No disc space narrowing in the lumbar spine. IMPRESSION: 1. Findings consistent with acute pancreatitis, with peripancreatic streaking around the distal body and tail. Pancreatic duct is not dilated. There is no evidence of pancreatic necrosis. 2. There is a small cystic lesion in the pancreatic neck measuring 10 x 9 mm. This has slightly increased in size when compared to CT scan of 2011. This can be further worked up with multiphase pancreatic protocol MRI. 3. Sigmoid diverticulosis but no evidence of acute diverticulitis. No evidence of appendicitis. Appendix is not seen. 4. Bilateral nonobstructive nephrolithiasis as described above. There are also 2 calculi in the right-side of the urinary bladder. 5. Grossly enlarged and mildly lobulated prostate gland. Recommend appropriate testing. Preliminary virtual Radiology report was reviewed. RADIATION DOSE DELIVERED: 1,390.86mGy.cm Total DLP DATA REPOSITORY: All CT scans at this facility are submitted to the National Radiology Data Registry (NRDR) Dose Index Registry (DIR) with the [employer] (A[employer]). RADIATION OPTIMIZATION: All CT scans at this facility use at least one of these dose optimization techniques: automated exposure control; mA and/or kV adjustment per patient size (includes targeted exams where dose is matched to clinical indication); or iterative reconstruction.
[2025-03-04 21:47] VITALS: BP 185/51; PULSE 78; RESP 18; O2SAT 96
--- NOTE | 2025-03-04 21:50 | DI.VRAD_ITS ---
PROCEDURE INFORMATION: Exam: CT Abdomen And Pelvis With Contrast Exam date and time: 03/04/2025 9:03 PM Age: 80 years old Clinical indication: Abdominal pain; Generalized; Prior surgery; Surgery date: 6+ months; Surgery type: Appendectomy. Liver transplant; Pain, HX of diverticulitis TECHNIQUE: Imaging protocol: Computed tomography of the abdomen and pelvis with contrast. Radiation optimization: All CT scans at this facility use at least one of these dose optimization techniques: automated exposure control; mA and/or kV adjustment per patient size (includes targeted exams where dose is matched to clinical indication); or iterative reconstruction. Contrast material: [id number]; Contrast volume: 100 ml; Contrast route: INTRAVENOUS (IV); COMPARISON: CT LOWER EXT RT W CONTRAST 04/08/2023 1:47 PM FINDINGS: Lungs: The lungs are clear. Liver: The liver has a normal appearance. Gallbladder and biliary ducts: The gallbladder is surgically absent. Pancreas: The pancreas is mildly atrophic within the head and body. A hypodense 0.9 cm cystic focus is present within the body of the pancreas (series 8/image 27). No pancreatic ductal dilatation. Moderate peripancreatic edema is present surrounding the tail of the pancreas. Spleen: The spleen demonstrates normal size. Adrenal glands: The adrenal glands have a normal appearance. Kidneys and ureters: The kidneys are normal in size. Bilateral nonobstructing calculi are visualized within the bilateral kidneys. The largest is on the left and measures 1.2 cm in diameter. No hydronephrosis. No hydroureter or ureterolithiasis. Low-density cortical cystic lesions are present bilaterally within the kidneys. Stomach and bowel: The bowel demonstrates overall normal caliber and wall thickness. There are scattered diverticular outpouchings throughout the colon. No mucosal thickening or pericolonic fat stranding. Appendix: The appendix is not visualized; however there are no ancillary findings to suggest acute appendicitis such as free right lower quadrant fluid or perienteric fat stranding. Intraperitoneal space: Unremarkable. No free air. No significant fluid collection. Vasculature: There are scattered atheromatous calcifications throughout the aorta and iliac arteries. Lymph nodes: No enlarged lymph nodes. Urinary bladder: The bladder is thin walled and fluid filled. Nonobstructing calculi are layered in the posterior right bladder. Reproductive: The prostate has a heterogeneous appearance and is markedly enlarged. Bones/joints: Bones have a normal appearance. No acute fracture or suspicious bone lesion. Soft tissues: There is a large direct and indirect fat containing right inguinal hernia. There is a small fat containing periumbilical hernia. There is a moderate-sized fat containing left inguinal hernia. IMPRESSION: 1. Findings suspicious for mild acute pancreatitis at the tail of the pancreas. No findings to suggest pancreatic necrosis. No ductal dilatation. 2. Cystic lesion within the body of the pancreas. Findings may represent a small side branch intraductal mucinous tumor. If further characterization is warranted, multiphase pancreatic mass protocol CT could be used. 3. The appendix is not visualized; however there are no ancillary findings to suggest acute appendicitis. 4. Diverticulosis. No acute diverticulitis. 5. Nonobstructing nephrolithiasis. Dictated and Authenticated by: Michelle Ernandez MD. Orderin tEhel Stanley MD
--- NOTE | 2025-03-04 22:11 | W.ED.GENAD ---
Discharge Plan Disposition Patient Disposition: Home Condition: Stable Discharge Details Clinical Impression: Pancreatitis, Mass of pancreas Primary Care Provider: Monie Arce ED Provider: Jaden Davenport Home Meds and New Rx's Prescriptions: Continued sildenafil 100 mg tablet 100 mg PO DAILY PRN Rx Instructions: administer 30 minutes to 4 hours before activity ketoconazole 2 % cream 1 applic topical DAILY 90 Days Qty: 60 3RF Rx Instructions: Apply to toenails once daily Eliquis 5 mg tablet 5 mg PO BID tacrolimus [Prograf] 1 MG capsule 3 tab PO BID Patient Comments: 2.5 mg am and 2.5 mg pm omeprazole [Prilosec] 20 MG capsule,delayed release(DR/EC) 20 mg PO DAILY psyllium 1 EACH wafer 2 units PO DAILY oxycodone 5 mg tablet 10 mg PO Q4H PRN Rx Instructions: 1/2 tab every 4 hours as needed. oxycodone [OxyContin] 30 mg tablet,oral only,ext.rel.12 hr 40 mg PO DIRECTED Patient Comments: TAKE ONE TABLET BY MOUTH EVERY 12 HOURS furosemide 40 mg tablet 40 mg PO DAILY PRN lisinopril 20 mg tablet 20 mg PO DAILY Patient Comments: TAKE ONE TABLET BY MOUTH EVERY DAY Discharge Instructions Instructions: Acute pancreatitis Additional Instructions: It appears as though your left-sided abdominal pain is caused by pancreatitis today. Your CT also reveals a cystic lesion within the body of the pancreas that likely warrants further evaluation. You feel comfortable to go home now, you may take your already prescribed oxycodone for discomfort. We discussed general bowel rest, clear liquid diet over the weekend. You do not need a prescription for an antiemetic at this time. I strongly recommend that you contact both your primary care provider and your liver transplant team tomorrow to make them aware of your ER visit and need for outpatient reevaluation. They may want to recheck your lipase next week to be sure it is trending in the right direction. Also as we discussed, they would likely obtain additional imaging to further characterize the cystic lesion in your pancreas please watch for new or worsening symptoms and return immediately to the ER. Discharge Data Discharge Date/Time-TO BE ENTERED AT DEPARTURE: 03/04/25 22:34 HPI General Mode of arrival: ambulatory. Date/Time Provider Initiated Documentation: 03/04/25 19:34. Limitations to Documentation: no limitations. Information obtained by: patient and family. History of Present Illness described as moderate, with intensity rated at 5. Quality is described as aching, and is localized to the abdomen and left. Patient reports no radiation. Patient started experiencing this day(s) (3) and it has been constant. No relieving factors improve symptom(s), No exacerbating factors reported . Patient notes nausea/vomiting (Mild nausea, no vomiting. Tolerating p.o. intake today). Patient did receive the following treatments prior to arrival, none HPI Narrative: Left-sided abdominal pain, constipation Related Data Home Medications ?Medication ?Instructions ?Recorded ?Confirmed omeprazole 20 mg capsule,delayed 20 mg PO DAILY 10/13/12 03/04/25 release (Prilosec) tacrolimus 1 mg capsule, 3 tab PO BID 10/13/12 03/04/25 immediate-release (Prograf) psyllium 1.7 g oral wafer 2 units PO DAILY 06/21/15 03/04/25 ketoconazole 2 % topical cream 1 applic topical DAILY 3 months 05/08/23 03/04/25 #60 grams sildenafil 100 mg tablet 100 mg PO DAILY PRN 05/08/23 03/04/25 furosemide 40 mg tablet 40 mg PO DAILY PRN 08/13/23 03/04/25 apixaban 5 mg tablet (Eliquis) 5 mg PO BID 08/27/23 03/04/25 oxycodone 30 mg tablet,crush 40 mg PO DIRECTED 03/30/24 03/04/25 resistant,extended release 12 hr (OxyContin) oxycodone 5 mg tablet 10 mg PO Q4H PRN 03/30/24 03/04/25 lisinopril 20 mg tablet 20 mg PO DAILY 01/22/25 03/04/25 Previous Rx's ?Medication ?Instructions ?Recorded ketoconazole 2 % topical cream 1 applic topical DAILY 3 months 05/08/23 #60 grams Allergies Allergy/AdvReac Type Severity Reaction Status Date / Time NSAIDS (Non-Steroidal Allergy Contraindic Verified 03/04/25 19:26 Anti-Inflamma ation caffeine AdvReac Intermediate Rapid Verified 03/04/25 19:26 Heartbeat metronidazole (From Flagyl) AdvReac Other (See Verified 03/04/25 19:26 Comment) General Stated Complaint: Abd Prob KEVIN: 3 Review of Systems Constitutional Constitutional: Denies fever(s), Denies headache(s) and Denies weakness ENT Ears, Nose, Mouth, and Throat: Denies headache(s) Cardiovascular Cardiovascular: Denies chest pain and Denies dyspnea Respiratory Respiratory: Denies cough and Denies dyspnea Gastrointestinal Gastrointestinal: Reports abdominal pain, Denies melena, Denies hematochezia, Reports constipation (3 days ) and Denies diarrhea Genitourinary Genitourinary: Denies hematuria and Denies dysuria Musculoskeletal Musculoskeletal: Denies back pain Integumentary/Breasts Skin/Breast: Denies rash Neurologic Neurologic: Denies headache(s) and Denies weakness Hematologic/Lymphatic Hematologic/Lymphatic: Reports easy bleeding and Reports easy bruising Exam Const General: cooperative, healthy appearing, comfortable and no acute distress Orientation: alert, awake and oriented x3 HENMT Head: normal to inspection, normocephalic and atraumatic Face and sinus: normal facial exam Mouth: moist mucous membranes Eyes General: appearance normal, both eyes and all related structures Conjunctivae: conjunctivae normal Neck Neck: normal visual inspection, full ROM, trachea midline and supple Resp Effort & Inspection: normal respiratory effort and able to speak in complete sentences Auscultation: clear to auscultation bilaterally Cardio Rate: regular rate Rhythm: abnormal rhythm irregularly irregular GI Inspection: scar and other (Small nontender easily reduced umbilical hernia) Palpation: soft, not firm, no guarding and tender (Diffuse mild left-sided, upper slightly worse than lower) Auscultation: normal bowel sounds Back/Spine/Pelvis Back: no CVA tenderness and No back tenderness Skin General skin exam: no rashes or lesions noted Neuro General: patient alert, patient awake, moves all extremities and no focal motor deficits Cognition: normal cognition Speech: speech normal Gait: normal gait Sensory Exam: no sensory deficits noted Extrem General: no pedal edema Psych Appearance: grossly normal Mental Status: mental status grossly normal Course Vital Signs Vital signs: Vital Signs Temperature 37.1 C 03/04/25 19:20 Pulse 77 03/04/25 19:20 Respiratory Rate 03/04/25 19:20 Blood Pressure 191/90 H 03/04/25 19:20 Pulse Oximetry 98 03/04/25 19:20 Temperature 37.1 C 03/04/25 19:25 Pulse 78 03/04/25 21:47 Respiratory Rate 18 03/04/25 21:47 Blood Pressure 185/51 H 03/04/25 21:47 Blood Pressure Mean 95 03/04/25 21:47 Pulse Oximetry 96 03/04/25 21:47 Oxygen Delivery Method Room Air 03/04/25 21:47 Oxygen Flow Rate 0 03/04/25 21:47 Pain Level 5 03/04/25 19:25 Lab/Test Results Lab/Test Results: Laboratory Tests Range/Units 03/04/25 20:10 WBC (4.4-10.8) 10^3/uL 11.26 H RBC (4.36-5.78) 10^6/uL 4.81 Hgb (13.5-17.5) g/dL 13.8 Hct (40.0-50.0) % 43.0 MCV (80-95) fL 89 MCH (27.0-33.0) pg 28.7 MCHC (32.0-36.0) % 32.1 RDW (11.8-14.1) % 12.8 Plt Count (130-400) 10^3/uL 161 MPV (8.0-11.0) fL 8.6 Immature Gran % % 0.4 Neutrophils % % 78.5 Lymphocytes % % 11.9 Monocytes % % 6.7 Eosinophils % % 2.1 Basophils % % 0.4 Nucleated RBC % (0.0-0.3) % 0.0 Absolute Neutrophils (1.2-6.7) 10^3/uL 8.84 H Absolute Lymphocytes (1.2-3.4) 10^3/uL 1.34 Absolute Monocytes (0.1-0.8) 10^3/uL 0.75 Absolute Eosinophils (0.0-0.7) 10^3/uL 0.24 Absolute Basophils (0.0-0.2) 10^3/uL 0.05 Sodium (136-145) mmol/L 138 Potassium (3.5-5.1) mmol/L 4.1 Chloride (98-107) mmol/L 102 Carbon Dioxide (21.0-32.0) mmol/L 30.1 Anion Gap (3-11) mmol/L 5.9 BUN (7-18) mg/dL 13 Creatinine (0.70-1.30) mg/dL 1.0 Est GFR (CKD-EPI 2020) (mL/min/1.73m2) 75.14 Glucose (74-106) mg/dL 121 H Calcium (8.5-10.1) mg/dL 8.9 Total Bilirubin (0.2-1.0) mg/dL 1.0 AST (15-37) U/L 15 ALT (16-63) U/L 20 Alkaline Phosphatase (46-116) U/L 122 H Total Protein (6.4-8.2) g/dL 8.2 Albumin (3.4-5.0) g/dL 3.7 Lipase (<78) U/L 835 H Urine Color (Yellow) Yellow Urine Clarity (Clear) Clear Urine pH (5-8) 5.5 Ur Specific [place] (1.005-1.025) 1.015 Urine Protein (Neg-Trace) mg/dL 100 H Urine Ketones (Negative) mg/dL Negative Urine Blood (Negative) Trace-intact H Urine Nitrite (Negative) Negative Urine Bilirubin (Negative) Negative Urine Urobilinogen (Up to 0.2) mg/dL 0.2 Ur Leukocyte Esterase (Negative) Negative Urine RBC (0-2) HPF 0-2 Urine WBC (0-5) HPF 0-2 Ur Epithelial Cells (Negative) HPF Negative Urine Crystals (Negative) HPF Negative Urine Bacteria (Negative) HPF Few Urine Casts (Negative) LPF Negative Urine Mucus (Negative) Negative Ur Culture Indicated? No Urine Glucose (Negative) mg/dL Negative Medical Decision Making This is an 80-year-old gentleman with a past medical history that includes a liver transplant, is followed at [facility], chronic low back pain for which he takes oxycodone, GERD, diabetes hypertension, A-fib, takes daily apixaban, presenting for left-sided abdominal pain that began about 2-3 days ago associated with mild nausea, no vomiting, and constipation. He describes a history of uncomplicated diverticulitis and feels like this may be the same. He feels like his discomfort is well-controlled with his already prescribed oral oxycodone. He was able to tolerate p.o. intake today and does not feel as though antiemetic is necessary. Clinically he appears well, nontoxic. Abdomen is diffusely mildly tender on the left side but does not appear surgical in nature. No chest pain or shortness of breath whatsoever. Evaluation certainly seems abdominal-GI in nature, extremely low suspicion for cardiac or pulmonary etiology. Differential includes but limited to diverticulitis, ileus, bowel obstruction, pancreatitis, renal stone, UTI, pyelonephritis. No urinary symptoms. He has tried some rrui-clf-aamhoul stool softeners and fiber agents with no bowel movement. Discussed evaluation in length with patient and . Will obtain IV access, obtain routine screening laboratory values and obtain CT of the abdomen pelvis with IV contrast. Laboratory values reveal mild nonspecific leukocytosis of 11.26, hemoglobin 13.8 hematocrit 43 platelet count 161. Electrolytes are within normal range. Creatinine 1.0 with a GFR of 75.14. Glucose 121. Alk phosphatase 121, LFTs otherwise unremarkable. Lipase is 835. Urinalysis with trace blood but no obvious signs of infection. Discussion initial laboratory values with the patient and spouse. Denies history of pancreatitis. Admits to occasional rare alcohol use. Continues to be comfortable. No vomiting while under my care. Abdomen and pelvis CT with contrast ordered and reviewed, read by radiology as findings suspicious for mild acute pancreatitis at the tail of the pancreas. No findings to suggest pancreatic necrosis. No ductal dilatation. Cystic lesion within the body of the pancreas. 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 If further characterization is warranted, multiphase pancreatic mass protocol CT could be used. The appendix is not visualized; however, there is no ancillary findings to suggest acute appendicitis. Diverticulosis, no acute diverticulitis. Nonobstructing nephrolithiasis. Discussed results of CT with patient and spouse. Findings consistent with pancreatitis which is consistent with his presentation. He tells me he had imaging likely 2 years ago at [facility] but has never been told about a cystic lesion within the body of his pancreas. Regarding his pancreatitis, he feels well enough to be discharged home. We discussed clear liquid diet and bowel rest he feels like his oxycodone is sufficient for his discomfort and he does not believe he needs any antiemetics. He will continue a stool softener but may add on a laxative for his ongoing constipation. We discussed red flag signs and symptoms to monitor and if they were to present the importance of returning immediately to the ER. Otherwise we discussed the importance of contacting both his primary care provider and his liver transplant team at [facility]. They may want to monitor his pancreatitis closely rechecking his lipase next week. We also discussed the importance of likely additional imaging to further characterize the cystic lesion. Patient and are comfortable with this plan, comfortable with discharge in his current condition, and have no additional questions or concerns. Standard discharge and return precautions were provided. Patient understands, is agreeable to this plan, and has no additional questions or concerns upon discharge. This documentation was generated using [employer] system, please disregard any oddities of phrase or misspellings. Medical Records Medical records reviewed: Yes I reviewed the patient's medical records. Lab Data Lab results reviewed: Yes I reviewed the patient's lab results. Labs: Laboratory Tests Range/Units 03/04/25 20:10 WBC (4.4-10.8) 10^3/uL 11.26 H RBC (4.36-5.78) 10^6/uL 4.81 Hgb (13.5-17.5) g/dL 13.8 Hct (40.0-50.0) % 43.0 MCV (80-95) fL 89 MCH (27.0-33.0) pg 28.7 MCHC (32.0-36.0) % 32.1 RDW (11.8-14.1) % 12.8 Plt Count (130-400) 10^3/uL 161 MPV (8.0-11.0) fL 8.6 Immature Gran % % 0.4 Neutrophils % % 78.5 Lymphocytes % % 11.9 Monocytes % % 6.7 Eosinophils % % 2.1 Basophils % % 0.4 Nucleated RBC % (0.0-0.3) % 0.0 Absolute Neutrophils (1.2-6.7) 10^3/uL 8.84 H Absolute Lymphocytes (1.2-3.4) 10^3/uL 1.34 Absolute Monocytes (0.1-0.8) 10^3/uL 0.75 Absolute Eosinophils (0.0-0.7) 10^3/uL 0.24 Absolute Basophils (0.0-0.2) 10^3/uL 0.05 Sodium (136-145) mmol/L 138 Potassium (3.5-5.1) mmol/L 4.1 Chloride (98-107) mmol/L 102 Carbon Dioxide (21.0-32.0) mmol/L 30.1 Anion Gap (3-11) mmol/L 5.9 BUN (7-18) mg/dL 13 Creatinine (0.70-1.30) mg/dL 1.0 Est GFR (CKD-EPI 2020) (mL/min/1.73m2) 75.14 Glucose (74-106) mg/dL 121 H Calcium (8.5-10.1) mg/dL 8.9 Total Bilirubin (0.2-1.0) mg/dL 1.0 AST (15-37) U/L 15 ALT (16-63) U/L 20 Alkaline Phosphatase (46-116) U/L 122 H Total Protein (6.4-8.2) g/dL 8.2 Albumin (3.4-5.0) g/dL 3.7 Lipase (<78) U/L 835 H Urine Color (Yellow) Yellow Urine Clarity (Clear) Clear Urine pH (5-8) 5.5 Ur Specific [place] (1.005-1.025) 1.015 Urine Protein (Neg-Trace) mg/dL 100 H Urine Ketones (Negative) mg/dL Negative Urine Blood (Negative) Trace-intact H Urine Nitrite (Negative) Negative Urine Bilirubin (Negative) Negative Urine Urobilinogen (Up to 0.2) mg/dL 0.2 Ur Leukocyte Esterase (Negative) Negative Urine RBC (0-2) HPF 0-2 Urine WBC (0-5) HPF 0-2 Ur Epithelial Cells (Negative) HPF Negative Urine Crystals (Negative) HPF Negative Urine Bacteria (Negative) HPF Few Urine Casts (Negative) LPF Negative Urine Mucus (Negative) Negative Ur Culture Indicated? No Urine Glucose (Negative) mg/dL Negative PFSH All Active Problems Mass of pancreas (Acute) Pancreatitis (Chronic) Degenerative tear of meniscus of right knee (Acute) Chronic ulcer of left foot with fat layer exposed (Acute) Ulcer of left foot with fat layer exposed (Acute) Nail dystrophy (Acute) Onychomycosis (Acute) Amputation of right great toe (Acute) Immunocompromised (Acute) liver transplant 2011; LT Prograf Tachycardia-bradycardia (Acute) Seasonal allergic rhinitis (Acute) PLMD (periodic limb movement disorder) (Acute) AVE (obstructive sleep apnea) (Chronic) Onychomycosis of toenail (Acute) Neuropathy (Acute) Lower urinary tract symptoms due to benign prostatic hyperplasia (Acute) Inflammatory dermatosis (Acute) Hypertensive disorder (Chronic) Cardiac pacemaker in situ (Acute) [place] 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 (Acute) Achilles tendinitis (Acute) Medical History Ulcer of right foot with fat layer exposed Chronic ulcer of right foot Osteomyelitis of right foot Pain in left foot Ankle sprain Pre-operative examination Left shoulder tendinitis Obesity Low back pain Kidney stone Hx of squamous cell carcinoma of skin Hx of primary malignant neoplasm of liver Hx of malignant neoplasm of skin Hx of skin cancer, basal cell Hx of malignant melanoma Erectile dysfunction Arthralgia of ankle Actinic keratosis Acquired hammer toe of right foot Toe infection Surgical History Status post amputation of toe 05/13/23 [facility] surgical; Dr. Tj Treviño; distal resection of the R great toe. (pathology sent to [facility]) Posterior subcapsular age-related cataract of left eye Nuclear age-related cataract, left eye Posterior subcapsular age-related cataract, right eye Nuclear age-related cataract, right eye Status post rotator cuff surgery History of cataract surgery History of tonsillectomy History of appendectomy History of liver biopsy S/P operative procedure on shoulder injection History of liver recipient Family History Brother Atrial fibrillation Cancer Hypertension Sister Hypertension Social History Smoking/Tobacco Use Status: Never Smoking risk assessment performed?: Yes Alcohol Intake: current Alcohol Intake frequency: holidays/special occasions only Drug use: Never Substance use type: does not use Housing: house Do you feel safe at home: Yes Do you feel safe in your relationship?: Yes
[2025-03-04 22:33] VITALS: BP 162/80; PULSE 90; RESP 18; O2SAT 99
== END 2025-03-04 22:34 | disposition home or self-care (01) ==
PROVIDERS: Emergency Provider Physician Assistant; PCP Internal Medicine
DX: K85.90 Acute pancreatitis without necrosis or infection, unspecified (principal); K86.89 Other specified diseases of pancreas
CPT/HCPCS: 80053; 83690; 99285; 74177; 81003; 81015; 85025; 99283; J3490

== ENCOUNTER → 2025-03-16 13:52 | Outpatient (BNVA) | payer MEDICARE, SELFPAY | PROVIDERS: PCP Internal Medicine; Referring Provider Internal Medicine; Visit Provider Student in an Organized Health Care Education/Training Program | DX: M23.306 Other meniscus derangements, unspecified meniscus, right knee (principal) | CPT/HCPCS: 99213 ==

== ENCOUNTER 2025-03-24 08:00 | Outpatient (CLI) | payer MEDICARE, SELFPAY ==
--- NOTE | 2025-03-24 08:00 | RT.EKG_ITS ---
APPROVED REPORT Exam: Resting ECG Reason for Exam: afib Patient Location: O HR:80 bpm ECG Measurements Heart Rate 80 AXIS IL 157 P 60 QRSd 151 QRS 32 QT 410 T 14 QTc 473 Conclusion Atrial-paced complexes...other complexes also detected Right bundle branch block...QRSd>120, terminal axis(90,270)
== END 2025-03-24 08:01 | disposition home or self-care (01) ==
LOC: DI.CARD 08:00
PROVIDERS: PCP Internal Medicine; Visit Provider Internal Medicine Cardiovascular Disease
DX: I48.91 Unspecified atrial fibrillation (principal); I49.5 Sick sinus syndrome; I45.10 Unspecified right bundle-branch block
CPT/HCPCS: 93010

== ENCOUNTER → 2025-03-24 13:54 | Outpatient (BNVA) | payer MEDICARE, SELFPAY | PROVIDERS: PCP Internal Medicine; Referring Provider Internal Medicine; Visit Provider Registered Nurse | DX: I48.91 Unspecified atrial fibrillation (principal); I49.5 Sick sinus syndrome; Z45.018 Encounter for adjustment and management of other part of cardiac pacemaker | CPT/HCPCS: 93005; 93280 ==